=== PATIENT | female | born 1955 | race African-American/Black ===

== ENCOUNTER 2021-06-05 08:05 | Inpatient (IN) ==
[2021-06-05] MEDS ORDERED: PIPERACILLIN/TAZOBACTAM 3,375 MG in SODIUM CHLORIDE 0.9% 100 ML IV STA (09:36)
[2021-06-05 10:17] LABS: Basophils % 0.2 % (0.0-0.8); Eosinophils # 0.2 10*3/uL (0.0-0.87); Eosinophils % 1.8 % (0.00-10.9); Hematocrit 27.3 VOL% (35.7-47.0); Hemoglobin 8.8 GM/DL (12.0-16.0); Immature Granulocytes % 1.4 %; Immature Granulocytes Absolute 0.12 #; Lymphocytes # 0.4 10*3/uL (1.4-4.0); Lymphocytes % 4.3 % (21.3-54.2); Mean Corpuscular HGB Conc 32.2 GM/DL (32-36); Mean Corpuscular Volume 86.1 FL (87-102); Mean Platelet Volume 10.6 FL (9.6-12.0); Monocytes % 9.2 % (1.7-12.7); Neutrophils % 83.1 % (38.7-73.9); Platelet Count 264 T/CUMM (130-400); Red Blood Count 3.17 MC/CUMM (3.8-5.5); Red Cell Distribution Width 14.3 % (9.3-17.3); White Blood Count 8.7 T/CUMM (4-12)
[2021-06-05 10:22] LABS: Bilirubin,Urine Negative (Negative); Blood, Urine Large mg/dL (Negative); Glucose,Urine (UA) Negative (Negative); Hyaline Casts,Urine 43 /LPF (0-3); Ketones,Urine 5 mg/dL (Negative); Mucus,Urine Occasional /LPF (Occasional); Nitrite,Urine Negative (Negative); Protein,Urine 100 MG/DL; RBC,Urine 104 /HPF (0-4); Squamous Epithelial Cell,Urine Occasional /HPF (0-10); Urine Appearance CLOUDY (Clear); Urine Color Amber (Yellow); Urine Specific Gravity 1.015 (1.001-1.035)
[2021-06-05 10:36] LABS: Albumin 2.5 G/DL (3.4-5.0); Bilirubin,Total 0.8 MG/DL (0.20-1.00); Calcium 8.5 MG/DL (8.5-10.1); Osmolality,Calculated 282.5 MOS/KG (273-304); Potassium 3.7 MMOL/L (3.5-5.1); Total Protein 7.3 G/DL (6.4-8.2)
[2021-06-05 10:45] LABS: Band Neutrophils 4 % (0-10); Eosinophils 3 % (0-10); Lymphocytes 5 % (20-55); Segmented Neutrophils 73 % (50-85); Total Cells Counted 100
[2021-06-05 10:46] LABS: Hypochromia 2+; Microcytosis Slight; Ovalocytes Few
[2021-06-05 10:47] LABS: Platelet Estimate Normal
[2021-06-05] MEDS ORDERED: ACETAMINOPHEN 325 MG TABLET PO PRN (11:44)
[2021-06-05] MEDS ORDERED: ONDANSETRON 4 MG/2 ML VIAL IV PRN ×2 (11:44→13:46)
[2021-06-05] MEDS ORDERED: BISACODYL 5 MG TABLET PO PRN (11:44)
[2021-06-05] MEDS ORDERED: HYDROmorphone 2 MG/1 ML VIAL IV PRN (11:44)
[2021-06-05] MEDS ORDERED: GLUCAGON 1 MG VIAL IM PRN (12:02)
[2021-06-05] MEDS ORDERED: DEXTROSE 50% 25 GM/50 ML SYRINGE IV PRN (12:02)
[2021-06-05] MEDS ORDERED: propofoL 200 MG/20 ML VIAL IV ONE (12:08)
[2021-06-05] MEDS ORDERED: LIDOCAINE 2% 5 ML VIAL ONE (12:08)
[2021-06-05] MEDS ORDERED: fentaNYL 100 MCG/2 ML VIAL ONE (12:10)
[2021-06-05] MEDS ORDERED: MIDAZOLAM 2 MG/2 ML VIAL ONE (12:11)
[2021-06-05] MEDS: LACTATED RINGERS 1,000 ML IV SCH ×2 (12:26→20:45)
[2021-06-05] MEDS ORDERED: ONDANSETRON 4 MG/2 ML VIAL ONE (13:36)
[2021-06-05] MEDS ORDERED: DEXAMETHASONE 4 MG/1 ML VIAL ONE (13:36)
[2021-06-05] MEDS ORDERED: ACETAMINOPHEN INJ 1,000 MG/100 ML VIAL IV ONE (13:36)
[2021-06-05] MEDS ORDERED: MEPERIDINE 25 MG/1 ML VIAL IV PRN (13:46)
[2021-06-05] MEDS: INSULIN LISPRO 100 UNIT/ML SUBCUT SCH (20:44)
[2021-06-05] MEDS ORDERED: PIPERACILLIN/TAZOBACTAM 3,375 MG in SODIUM CHLORIDE 0.9% 100 ML IV SCH (21:00)
[2021-06-06] MEDS: INSULIN LISPRO 100 UNIT/ML SUBCUT SCH ×4 (00:22→17:35)
[2021-06-06] MEDS: LACTATED RINGERS 1,000 ML IV SCH ×3 (04:07→12:48)
[2021-06-06 05:14] LABS: Basophils % 0.2 % (0.0-0.8); Hematocrit 25.2 VOL% (35.7-47.0); Hemoglobin 8.1 GM/DL (12.0-16.0); Immature Granulocytes % 2.2 %; Immature Granulocytes Absolute 0.23 #; Lymphocytes # 0.4 10*3/uL (1.4-4.0); Lymphocytes % 3.5 % (21.3-54.2); Mean Corpuscular HGB Conc 32.1 GM/DL (32-36); Mean Corpuscular Volume 85.1 FL (87-102); Mean Platelet Volume 10.1 FL (9.6-12.0); Monocytes % 6.8 % (1.7-12.7); Neutrophils % 87.3 % (38.7-73.9); Platelet Count 290 T/CUMM (130-400); Red Blood Count 2.96 MC/CUMM (3.8-5.5); Red Cell Distribution Width 14.2 % (9.3-17.3); White Blood Count 10.4 T/CUMM (4-12)
[2021-06-06 05:31] LABS: Calcium 8.2 MG/DL (8.5-10.1); Potassium 3.6 MMOL/L (3.5-5.1)
[2021-06-06 05:39] LABS: Band Neutrophils 5 % (0-10); Lymphocytes 4 % (20-55); Segmented Neutrophils 83 % (50-85); Total Cells Counted 100
[2021-06-06 05:40] LABS: Hypochromia 2+; Platelet Estimate Normal
[2021-06-06] MEDS: HYDROmorphone 2 MG/1 ML VIAL IV PRN (07:19)
[2021-06-06] MEDS: PIPERACILLIN/TAZOBACTAM 3,375 MG in SODIUM CHLORIDE 0.9% 100 ML IV SCH ×2 (09:40→16:22)
[2021-06-06] MEDS: PANTOPRAZOLE 40 MG TABLET PO SCH (09:40)
[2021-06-06] MEDS ORDERED: DEXTROSE 10% 250 ML BAG IV PRN (11:00)
[2021-06-06] MEDS: ATORVASTATIN 20 MG TABLET PO SCH (21:00)
[2021-06-07] MEDS: INSULIN LISPRO 100 UNIT/ML SUBCUT SCH ×4 (01:25→18:03)
[2021-06-07] MEDS: PIPERACILLIN/TAZOBACTAM 3,375 MG in SODIUM CHLORIDE 0.9% 100 ML IV SCH ×2 (01:58→09:01)
[2021-06-07] MEDS: LOSARTAN 50 MG TABLET PO SCH (09:02)
[2021-06-07] MEDS: PANTOPRAZOLE 40 MG TABLET PO SCH (09:02)
[2021-06-07] MEDS: HYDROmorphone 2 MG/1 ML VIAL IV PRN (09:16)
[2021-06-07] MEDS: LACTATED RINGERS 1,000 ML IV SCH ×3 (10:41→20:44)
[2021-06-07] MEDS: SODIUM HYPOCHLORITE 0.25% IRRIG 473 ML BOTTLE TOP SCH (10:42)
[2021-06-07] MEDS: CLINDAMYCIN INJ 900 MG/50 ML PREMIX IV SCH ×2 (12:02→13:42)
[2021-06-07] MEDS: cefTRIAXone 1,000 MG in SODIUM CHLORIDE 0.9% 100 ML IV SCH (16:13)
[2021-06-07] MEDS: ATORVASTATIN 20 MG TABLET PO SCH (20:43)
[2021-06-07] MEDS: CLINDAMYCIN INJ 600 MG/50 ML PREMIX IV SCH (21:32)
[2021-06-08] MEDS: INSULIN LISPRO 100 UNIT/ML SUBCUT SCH ×4 (01:29→18:46)
[2021-06-08] MEDS: CLINDAMYCIN INJ 600 MG/50 ML PREMIX IV SCH ×4 (05:25→21:08)
[2021-06-08] MEDS: LACTATED RINGERS 1,000 ML IV SCH ×3 (05:25→21:54)
[2021-06-08] MEDS: LOSARTAN 50 MG TABLET PO SCH (09:12)
[2021-06-08] MEDS: PANTOPRAZOLE 40 MG TABLET PO SCH (09:12)
[2021-06-08] MEDS: SODIUM HYPOCHLORITE 0.25% IRRIG 473 ML BOTTLE TOP SCH (10:48)
[2021-06-08] MEDS: cefTRIAXone 1,000 MG in SODIUM CHLORIDE 0.9% 100 ML IV SCH (15:58)
[2021-06-08] MEDS: ATORVASTATIN 20 MG TABLET PO SCH (21:08)
[2021-06-09] MEDS: INSULIN LISPRO 100 UNIT/ML SUBCUT SCH ×4 (00:06→19:01)
[2021-06-09] MEDS: LACTATED RINGERS 1,000 ML IV SCH ×3 (05:08→22:15)
[2021-06-09] MEDS: CLINDAMYCIN INJ 600 MG/50 ML PREMIX IV SCH ×2 (05:09→16:05)
[2021-06-09 05:40] LABS: Basophils % 0.5 % (0.0-0.8); Eosinophils # 0.2 10*3/uL (0.0-0.87); Hematocrit 22.4 VOL% (35.7-47.0); Immature Granulocytes % 11.1 %; Immature Granulocytes Absolute 0.47 #; Lymphocytes # 0.4 10*3/uL (1.4-4.0); Lymphocytes % 9.2 % (21.3-54.2); Mean Corpuscular HGB Conc 31.3 GM/DL (32-36); Mean Corpuscular Volume 87.8 FL (87-102); Mean Platelet Volume 9.1 FL (9.6-12.0); NRBC # 0.04 10*3/uL; Neutrophils % 67.2 % (38.7-73.9); Platelet Count 403 T/CUMM (130-400); Red Blood Count 2.55 MC/CUMM (3.8-5.5); Red Cell Distribution Width 14.8 % (9.3-17.3); White Blood Count 4.2 T/CUMM (4-12)
[2021-06-09 05:51] LABS: Calcium 7.9 MG/DL (8.5-10.1); Potassium 3.4 MMOL/L (3.5-5.1)
[2021-06-09 06:20] LABS: Band Neutrophils 2 % (0-10); Eosinophils 3 % (0-10); Hypochromia 1+; Lymphocytes 7 % (20-55); Metamyelocytes 3 %; Myelocytes 1 %; Segmented Neutrophils 79 % (50-85); Total Cells Counted 100
[2021-06-09 06:21] LABS: Microcytosis 1+; Ovalocytes Few
[2021-06-09] MEDS: PANTOPRAZOLE 40 MG TABLET PO SCH (10:10)
[2021-06-09] MEDS: LOSARTAN 50 MG TABLET PO SCH (10:10)
[2021-06-09] MEDS ORDERED: MAGNESIUM SULF RIDER 4 GM/100 ML PREMIX IV ONE (11:27)
[2021-06-09] MEDS ORDERED: POTASSIUM CHLORIDE 20 MEQ TABLET PO ONE (11:28)
[2021-06-09] MEDS ORDERED: SODIUM CHLORIDE 0.9% 1,000 ML IV PRN (11:31)
[2021-06-09 11:49] LABS: % Iron Saturation 7.1 % (18-50)
[2021-06-09] MEDS: cefTRIAXone 1,000 MG in SODIUM CHLORIDE 0.9% 100 ML IV SCH (17:15)
[2021-06-09] MEDS: SODIUM HYPOCHLORITE 0.25% IRRIG 473 ML BOTTLE TOP SCH (17:30)
[2021-06-09] MEDS: ATORVASTATIN 20 MG TABLET PO SCH (20:29)
[2021-06-09] MEDS: FERRIC GLUCONATE COMPLEX 125 MG in SODIUM CHLORIDE 0.9% 100 ML IV SCH (22:23)
[2021-06-10] MEDS: INSULIN LISPRO 100 UNIT/ML SUBCUT SCH ×3 (00:07→16:07)
[2021-06-10] MEDS: CLINDAMYCIN INJ 600 MG/50 ML PREMIX IV SCH ×2 (00:46→11:21)
[2021-06-10] MEDS: LACTATED RINGERS 1,000 ML IV SCH ×2 (03:19→16:07)
[2021-06-10 05:46] LABS: Basophils % 0.6 % (0.0-0.8); Eosinophils # 0.2 10*3/uL (0.0-0.87); Eosinophils % 3.2 % (0.00-10.9); Hematocrit 30.5 VOL% (35.7-47.0); Immature Granulocytes % 9.7 %; Immature Granulocytes Absolute 0.52 #; Lymphocytes # 0.3 10*3/uL (1.4-4.0); Lymphocytes % 5.6 % (21.3-54.2); Mean Corpuscular HGB Conc 32.8 GM/DL (32-36); Mean Corpuscular Volume 86.4 FL (87-102); Mean Platelet Volume 9.1 FL (9.6-12.0); Monocytes % 5.6 % (1.7-12.7); NRBC # 0.03 10*3/uL; Neutrophils % 75.3 % (38.7-73.9); Platelet Count 367 T/CUMM (130-400); Red Cell Distribution Width 14.8 % (9.3-17.3); White Blood Count 5.4 T/CUMM (4-12)
[2021-06-10 06:15] LABS: Red Blood Count 3.53 MC/CUMM (3.8-5.5)
[2021-06-10 06:22] LABS: Band Neutrophils 1 % (0-10); Eosinophils 1 % (0-10); Hypochromia 1+; Lymphocytes 5 % (20-55); Microcytosis 1+; Nucleated Red Blood Cells 1 (0-5); Platelet Estimate Adequate; Segmented Neutrophils 84 % (50-85); Total Cells Counted 100
[2021-06-10 06:32] LABS: Bilirubin,Total 1.3 MG/DL (0.20-1.00); Calcium 8.1 MG/DL (8.5-10.1); Potassium 3.5 MMOL/L (3.5-5.1); Total Protein 5.9 G/DL (6.4-8.2)
[2021-06-10] MEDS: FERRIC GLUCONATE COMPLEX 125 MG in SODIUM CHLORIDE 0.9% 100 ML IV SCH (09:38)
[2021-06-10] MEDS: SODIUM HYPOCHLORITE 0.25% IRRIG 473 ML BOTTLE TOP SCH (09:40)
[2021-06-10] MEDS: LOSARTAN 50 MG TABLET PO SCH (09:40)
[2021-06-10] MEDS: CLINDAMYCIN 300 MG CAPSULE PO SCH ×2 (09:40→15:22)
[2021-06-10] MEDS: PANTOPRAZOLE 40 MG TABLET PO SCH (09:40)
[2021-06-10] MEDS: cefTRIAXone 1,000 MG in SODIUM CHLORIDE 0.9% 100 ML IV SCH (16:08)
[2021-06-10 16:46] VITALS: BP 145/78
== END 2021-06-10 17:23 | disposition home health service (06) | DRG 638 ==
LOC: N.ED 08:05 → N.EDINP 12:18 → N.5E 14:35
PROVIDERS: ADMIT Surgery; ATTEND Surgery

== ENCOUNTER 2022-02-12 15:17 | Inpatient (IN) ==
[2022-02-12 16:06] LABS: Basophils % 0.1 % (0.0-0.8); Eosinophils # 0.1 10*3/uL (0.0-0.87); Eosinophils % 0.7 % (0.00-10.9); Hematocrit 29.9 VOL% (35.7-47.0); Hemoglobin 9.2 GM/DL (12.0-16.0); Immature Granulocytes % 1.1 %; Immature Granulocytes Absolute 0.17 #; Lymphocytes # 0.3 10*3/uL (1.4-4.0); Lymphocytes % 2.2 % (21.3-54.2); Mean Corpuscular HGB Conc 30.8 GM/DL (32-36); Mean Corpuscular Volume 88.5 FL (87-102); Mean Platelet Volume 10.5 FL (9.6-12.0); Monocytes # 0.9 10*3/uL (0.11-0.8); Monocytes % 6.4 % (1.7-12.7); Neutrophils % 89.5 % (38.7-73.9); Platelet Count 182 T/CUMM (130-400); Red Blood Count 3.38 MC/CUMM (3.8-5.5); Red Cell Distribution Width 16.5 % (9.3-17.3); White Blood Count 14.8 T/CUMM (4-12)
[2022-02-12 16:18] LABS: Arterial Base Excess iSTAT -1 MMOL/L (-2.5-2.5); Arterial Bicarbonate iSTAT 22.6 MMOL/L (20-26); Arterial O2 Saturation iSTAT 95 % (95-100); Arterial PCO2 iSTAT 31 MM HG (35-48); Arterial PO2 iSTAT 68 MM HG (80-95); Arterial Total CO2 iSTAT 24 MMO/L (23-27); Arterial pH iSTAT 7.471 (7.35-7.45)
[2022-02-12 16:28] LABS: Lymphocytes 3 % (20-55); Platelet Estimate Adequate; Total Cells Counted 100
[2022-02-12] MEDS ORDERED: cefTRIAXone 1,000 MG in SODIUM CHLORIDE 0.9% 100 ML IV STA (17:07)
[2022-02-12 17:46] LABS: Albumin 2.2 G/DL (3.4-5.0); Bilirubin,Total 0.5 MG/DL (0.20-1.00); Calcium 9.1 MG/DL (8.5-10.1); Osmolality,Calculated 286.7 MOS/KG (273-304); Total Protein 5.8 G/DL (6.4-8.2)
[2022-02-12] MEDS ORDERED: SODIUM CHLORIDE 0.9% 1,000 ML IV STA (18:09)
[2022-02-12] MEDS ORDERED: SODIUM BICARBONATE 50 MEQ/50 ML VIAL IV STA (18:09)
[2022-02-12] MEDS ORDERED: SODIUM CHLORIDE 0.9% 1,750 ML IV ONE (18:20)
[2022-02-12] MEDS ORDERED: ENOXAPARIN 100 MG/ML SYRINGE SUBCUT STA (18:28)
[2022-02-12] MEDS ORDERED: ENOXAPARIN 60 MG/0.6 ML SYRINGE SUBCUT STA (18:29)
[2022-02-12] MEDS ORDERED: POTASSIUM CHLORIDE 20 MEQ TABLET PO STA (18:29)
[2022-02-12] MEDS ORDERED: GLUCAGON 1 MG VIAL IM PRN (18:42)
[2022-02-12] MEDS ORDERED: DOCUSATE SODIUM 100 MG CAPSULE PO PRN (18:42)
[2022-02-12] MEDS ORDERED: DEXTROSE 10% 250 ML BAG IV PRN (18:42)
[2022-02-12] MEDS ORDERED: DEXTROSE 50% 25 GM/50 ML VIAL IV PRN (18:42)
[2022-02-12] MEDS ORDERED: ONDANSETRON 4 MG/2 ML VIAL IV PRN (18:42)
[2022-02-12] MEDS ORDERED: guaiFENesin/DM ER 600-30 MG TABLET PO PRN (18:42)
[2022-02-12 19:14] LABS: Bilirubin,Urine Negative (Negative); Blood, Urine Negative (Negative); Glucose,Urine (UA) Negative (Negative); Ketones,Urine Negative (Negative); Nitrite,Urine Negative (Negative); Protein,Urine Trace mg/dL (Negative); Urine Appearance Clear (Clear); Urine Color Yellow (Yellow); Urine Specific Gravity 1.015 (1.001-1.035); Urine Urobilinogen 0.2 eU/dL (<2.0)
[2022-02-12 19:16] LABS: Hyaline Casts,Urine 1 /LPF (0-3); RBC,Urine <1 /HPF (0-4); Squamous Epithelial Cell,Urine Occasional /HPF (0-10)
[2022-02-12] MEDS: ALBUTEROL 2.5 MG/3 ML NEB RESP TX SCH (20:09)
[2022-02-12] MEDS ORDERED: AZITHROMYCIN INJ 500 MG in SODIUM CHLORIDE 0.9% 250 ML IV SCH (21:00)
[2022-02-12 22:02] LABS: Albumin 2.1 G/DL (3.4-5.0); Bilirubin,Total 0.4 MG/DL (0.20-1.00); Calcium 8.7 MG/DL (8.5-10.1); Osmolality,Calculated 287.5 MOS/KG (273-304); Total Protein 5.5 G/DL (6.4-8.2)
[2022-02-12] MEDS: INSULIN REGULAR 100 UNIT/ML SUBCUT SCH (22:25)
[2022-02-13] MEDS: ALBUTEROL 2.5 MG/3 ML NEB RESP TX SCH ×4 (01:07→19:37)
[2022-02-13 05:41] LABS: Basophils % 0.2 % (0.0-0.8); Eosinophils % 0.3 % (0.00-10.9); Hematocrit 26.3 VOL% (35.7-47.0); Hemoglobin 8.2 GM/DL (12.0-16.0); Immature Granulocytes % 1.3 %; Immature Granulocytes Absolute 0.08 #; Lymphocytes # 0.3 10*3/uL (1.4-4.0); Lymphocytes % 5.1 % (21.3-54.2); Mean Corpuscular HGB Conc 31.2 GM/DL (32-36); Mean Corpuscular Volume 89.2 FL (87-102); Mean Platelet Volume 9.4 FL (9.6-12.0); Monocytes # 0.4 10*3/uL (0.11-0.8); Monocytes % 6.5 % (1.7-12.7); Neutrophils % 86.6 % (38.7-73.9); Platelet Count 166 T/CUMM (130-400); Red Blood Count 2.95 MC/CUMM (3.8-5.5); Red Cell Distribution Width 16.5 % (9.3-17.3); White Blood Count 6.1 T/CUMM (4-12)
[2022-02-13 06:14] LABS: Albumin 2.1 G/DL (3.4-5.0); Bilirubin,Total 0.4 MG/DL (0.20-1.00); Osmolality,Calculated 287.1 MOS/KG (273-304); Potassium 3.7 MMOL/L (3.5-5.1); Total Protein 5.8 G/DL (6.4-8.2)
[2022-02-13 06:22] LABS: Thyroid Stimulating Hormone 13.6 uIU/ml (0.358-3.74)
[2022-02-13] MEDS: INSULIN REGULAR 100 UNIT/ML SUBCUT SCH ×4 (08:25→22:58)
[2022-02-13] MEDS ORDERED: cefTRIAXone 2,000 MG in SODIUM CHLORIDE 0.9% 100 ML IV SCH (09:00)
[2022-02-13] MEDS: APIXABAN 5 MG TABLET PO SCH ×2 (10:08→22:49)
[2022-02-13] MEDS ORDERED: diphenhydrAMINE CAP 50 MG CAPSULE PO ONE (11:00)
[2022-02-13] MEDS ORDERED: DIAZEPAM 5 MG TABLET PO ONE (11:00)
[2022-02-13] MEDS ORDERED: HYDROmorphone 1 MG/1 ML SYRINGE ONE ×2 (17:29→18:38)
[2022-02-13] MEDS ORDERED: MIDAZOLAM 2 MG/2 ML VIAL ONE (17:29)
[2022-02-13] MEDS ORDERED: METOPROLOL TARTRATE 5 MG/5 ML VIAL IV ONE ×2 (17:58→18:44)
[2022-02-13] MEDS ORDERED: ZALEPLON 5 MG CAPSULE PO PRN (18:41)
[2022-02-13] MEDS ORDERED: HYDROmorphone 1 MG/1 ML SYRINGE IV PRN (18:41)
[2022-02-14] MEDS: ALBUTEROL 2.5 MG/3 ML NEB RESP TX SCH ×4 (00:02→19:40)
[2022-02-14] MEDS: ACETAMINOPHEN 325 MG TABLET PO PRN ×2 (00:37→20:03)
[2022-02-14] MEDS: SODIUM CHLORIDE 0.45% 500 ML IV SCH ×2 (01:29→06:23)
[2022-02-14] MEDS: IBUPROFEN 400 MG TABLET PO PRN ×2 (03:14→17:52)
[2022-02-14 05:45] LABS: Basophils % 0.2 % (0.0-0.8); Eosinophils # 0.2 10*3/uL (0.0-0.87); Eosinophils % 1.7 % (0.00-10.9); Hematocrit 26.7 VOL% (35.7-47.0); Hemoglobin 8.1 GM/DL (12.0-16.0); Immature Granulocytes % 1.1 %; Immature Granulocytes Absolute 0.12 #; Lymphocytes # 0.4 10*3/uL (1.4-4.0); Lymphocytes % 3.4 % (21.3-54.2); Mean Corpuscular HGB Conc 30.3 GM/DL (32-36); Mean Corpuscular Volume 89.9 FL (87-102); Mean Platelet Volume 9.7 FL (9.6-12.0); Monocytes # 0.8 10*3/uL (0.11-0.8); Monocytes % 7.1 % (1.7-12.7); Neutrophils % 86.5 % (38.7-73.9); Platelet Count 124 T/CUMM (130-400); Red Blood Count 2.97 MC/CUMM (3.8-5.5); White Blood Count 10.5 T/CUMM (4-12)
[2022-02-14 06:06] LABS: Calcium 8.7 MG/DL (8.5-10.1); Osmolality,Calculated 284.4 MOS/KG (273-304); Potassium 4.1 MMOL/L (3.5-5.1)
[2022-02-14] MEDS: LEVOTHYROXINE 25 MCG TABLET PO SCH (06:15)
[2022-02-14 06:42] LABS: Anisocytosis 1+; Band Neutrophils 8 % (0-10); Burr Cells Few; Lymphocytes 3 % (20-55); Macrocytosis 1+; Platelet Estimate Adequate; Total Cells Counted 100
[2022-02-14 06:43] LABS: Hypochromia Slight; Ovalocytes 1+
[2022-02-14] MEDS ORDERED: DEXTROSE 50% 25 GM/50 ML VIAL IV PRN (08:47)
[2022-02-14] MEDS ORDERED: GLUCAGON 1 MG VIAL IM PRN (08:47)
[2022-02-14] MEDS: INSULIN REGULAR 100 UNIT/ML SUBCUT SCH ×4 (08:51→20:38)
[2022-02-14] MEDS: APIXABAN 5 MG TABLET PO SCH ×2 (09:58→21:16)
[2022-02-14] MEDS: LIOTHYRONINE 25 MCG TABLET PO SCH (09:59)
[2022-02-14] MEDS ORDERED: SODIUM CHLORIDE 0.9% 500 ML IV ONE (17:36)
[2022-02-14] MEDS: traZODone 50 MG TABLET PO PRN (20:03)
[2022-02-15] MEDS: ALBUTEROL 2.5 MG/3 ML NEB RESP TX SCH ×3 (00:35→13:05)
[2022-02-15] MEDS: LEVOTHYROXINE 25 MCG TABLET PO SCH (06:20)
[2022-02-15 08:03] LABS: Basophils % 0.4 % (0.0-0.8); Eosinophils # 0.3 10*3/uL (0.0-0.87); Eosinophils % 3.3 % (0.00-10.9); Hematocrit 27.1 VOL% (35.7-47.0); Hemoglobin 8.3 GM/DL (12.0-16.0); Immature Granulocytes % 0.8 %; Immature Granulocytes Absolute 0.07 #; Lymphocytes # 0.3 10*3/uL (1.4-4.0); Lymphocytes % 3.4 % (21.3-54.2); Mean Corpuscular HGB Conc 30.6 GM/DL (32-36); Mean Corpuscular Volume 89.4 FL (87-102); Mean Platelet Volume 8.6 FL (9.6-12.0); Monocytes # 0.3 10*3/uL (0.11-0.8); Monocytes % 3.7 % (1.7-12.7); Neutrophils % 88.4 % (38.7-73.9); Platelet Count 114 T/CUMM (130-400); Red Blood Count 3.03 MC/CUMM (3.8-5.5); Red Cell Distribution Width 16.7 % (9.3-17.3); White Blood Count 8.5 T/CUMM (4-12)
[2022-02-15] MEDS: INSULIN REGULAR 100 UNIT/ML SUBCUT SCH ×3 (08:07→15:31)
[2022-02-15] MEDS: APIXABAN 5 MG TABLET PO SCH ×2 (08:11→22:14)
[2022-02-15] MEDS: LIOTHYRONINE 25 MCG TABLET PO SCH (08:11)
[2022-02-15 08:15] LABS: Calcium 8.5 MG/DL (8.5-10.1); Osmolality,Calculated 282.5 MOS/KG (273-304); Potassium 3.5 MMOL/L (3.5-5.1)
[2022-02-15 08:24] LABS: Anisocytosis 1+; Band Neutrophils 11 % (0-10); Eosinophils 2 % (0-10); Lymphocytes 4 % (20-55); Ovalocytes Few; Platelet Estimate Adequate; Total Cells Counted 100
[2022-02-15] MEDS ORDERED: LACTATED RINGERS 1,000 ML IV SCH (09:00)
[2022-02-15] MEDS ORDERED: FUROSEMIDE 40 MG/4 ML VIAL IV ONE ×2 (10:45→18:00)
[2022-02-15] MEDS ORDERED: METOPROLOL TARTRATE 5 MG/5 ML VIAL IV ONE ×2 (14:21→15:22)
[2022-02-15] MEDS ORDERED: METOPROLOL TARTRATE 50 MG TABLET PO ONE (14:23)
[2022-02-15] MEDS ORDERED: METOCLOPRAMIDE 10 MG/2 ML VIAL IV ONE (15:18)
[2022-02-15] MEDS: ACETAMINOPHEN 325 MG TABLET PO PRN (15:45)
[2022-02-15] MEDS ORDERED: SODIUM CHLORIDE 0.9% 500 ML IV ONE (17:27)
[2022-02-16] MEDS: INSULIN REGULAR 100 UNIT/ML SUBCUT SCH ×5 (00:24→22:00)
[2022-02-16] MEDS: METOPROLOL TARTRATE 25 MG TABLET PO SCH ×3 (00:24→21:59)
[2022-02-16] MEDS: ALBUTEROL 2.5 MG/3 ML NEB RESP TX SCH ×4 (00:30→19:21)
[2022-02-16] MEDS ORDERED: FUROSEMIDE 40 MG/4 ML VIAL IV SCH (09:00)
[2022-02-16] MEDS: LIOTHYRONINE 25 MCG TABLET PO SCH (09:56)
[2022-02-16] MEDS: APIXABAN 5 MG TABLET PO SCH ×2 (09:56→21:59)
[2022-02-16] MEDS ORDERED: FUROSEMIDE 40 MG/4 ML VIAL IV ONE (11:29)
[2022-02-16 15:41] LABS: Aldosterone, Plasma < 4.0 ng/dL (<=21)
[2022-02-16 15:44] LABS: Metanephrine, Free < 0.20 nmol/L (<0.50); Normetanephrine, Free 0.58 nmol/L (<0.90)
[2022-02-16] MEDS ORDERED: LEVOFLOXACIN INJ 500 MG/100 ML PREMIX IV ONE (16:00)
[2022-02-16 16:46] LABS: Renin Activity 4.6 ng/mL/h
[2022-02-16] MEDS: FUROSEMIDE 40 MG/4 ML VIAL IV SCH (17:44)
[2022-02-17] MEDS ORDERED: COSYNTROPIN 0.25 MG VIAL IV ONE (04:00)
[2022-02-17 05:49] LABS: Basophils % 0.2 % (0.0-0.8); Eosinophils % 0.6 % (0.00-10.9); Hematocrit 23.3 VOL% (35.7-47.0); Hemoglobin 7.4 GM/DL (12.0-16.0); Immature Granulocytes % 0.9 %; Immature Granulocytes Absolute 0.06 #; Lymphocytes # 0.2 10*3/uL (1.4-4.0); Lymphocytes % 3.4 % (21.3-54.2); Mean Corpuscular HGB Conc 31.8 GM/DL (32-36); Mean Corpuscular Volume 86.9 FL (87-102); Mean Platelet Volume 10.3 FL (9.6-12.0); Monocytes # 0.3 10*3/uL (0.11-0.8); Monocytes % 4.9 % (1.7-12.7); Platelet Count 151 T/CUMM (130-400); Red Blood Count 2.68 MC/CUMM (3.8-5.5); Red Cell Distribution Width 16.4 % (9.3-17.3); White Blood Count 6.6 T/CUMM (4-12)
[2022-02-17 06:05] LABS: Calcium 8.4 MG/DL (8.5-10.1); Osmolality,Calculated 281.8 MOS/KG (273-304); Potassium 3.3 MMOL/L (3.5-5.1)
[2022-02-17 06:10] LABS: % Iron Saturation 11.1 % (18-50); Ferritin 1857.2 ng/mL (8-252)
[2022-02-17 06:16] LABS: Eosinophils 1 % (0-10); Hypochromia 1+; Lymphocytes 1 % (20-55); Microcytosis 1+; Ovalocytes Slight; Platelet Estimate Adequate; Total Cells Counted 100
[2022-02-17] MEDS: ALBUTEROL 2.5 MG/3 ML NEB RESP TX SCH ×2 (06:56)
[2022-02-17] MEDS ORDERED: POTASSIUM CHLORIDE 20 MEQ TABLET PO ONE (07:25)
[2022-02-17] MEDS ORDERED: MAGNESIUM SULF RIDER 2 GM/50 ML PREMIX IV ONE (07:25)
[2022-02-17] MEDS ORDERED: SODIUM CHLORIDE 0.9% 1,000 ML IV PRN (08:51)
[2022-02-17] MEDS: APIXABAN 5 MG TABLET PO SCH ×2 (09:21→20:29)
[2022-02-17] MEDS: METOPROLOL TARTRATE 25 MG TABLET PO SCH ×2 (09:21→20:29)
[2022-02-17] MEDS: LIOTHYRONINE 25 MCG TABLET PO SCH (09:21)
[2022-02-17] MEDS: INSULIN REGULAR 100 UNIT/ML SUBCUT SCH ×4 (09:29→20:32)
[2022-02-17] MEDS: FUROSEMIDE 40 MG/4 ML VIAL IV SCH (10:16)
[2022-02-17] MEDS: FERRIC GLUCONATE COMPLEX 125 MG in SODIUM CHLORIDE 0.9% 100 ML IV SCH (11:43)
[2022-02-17] MEDS: LEVALBUTEROL 1.25 MG/3 ML NEB RESP TX SCH ×2 (13:28→19:02)
[2022-02-17] MEDS: LEVOFLOXACIN INJ 250 MG/50 ML PREMIX IV SCH (18:53)
[2022-02-17 19:57] LABS: Hematocrit 30.4 VOL% (35.7-47.0); Hemoglobin 9.8 GM/DL (12.0-16.0)
[2022-02-18] MEDS: LEVALBUTEROL 1.25 MG/3 ML NEB RESP TX SCH ×4 (00:20→20:00)
[2022-02-18 05:35] LABS: Basophils % 0.3 % (0.0-0.8); Eosinophils % 0.6 % (0.00-10.9); Hematocrit 27.1 VOL% (35.7-47.0); Hemoglobin 8.4 GM/DL (12.0-16.0); Immature Granulocytes % 0.7 %; Immature Granulocytes Absolute 0.05 #; Lymphocytes # 0.3 10*3/uL (1.4-4.0); Lymphocytes % 3.4 % (21.3-54.2); Mean Corpuscular Volume 86.6 FL (87-102); Mean Platelet Volume 9.6 FL (9.6-12.0); Monocytes # 0.4 10*3/uL (0.11-0.8); Monocytes % 5.6 % (1.7-12.7); Neutrophils % 89.4 % (38.7-73.9); Platelet Count 141 T/CUMM (130-400); Red Blood Count 3.13 MC/CUMM (3.8-5.5); Red Cell Distribution Width 15.9 % (9.3-17.3); White Blood Count 7.3 T/CUMM (4-12)
[2022-02-18 06:05] LABS: Eosinophils 1 % (0-10); Hypochromia Slight; Lymphocytes 3 % (20-55); Microcytosis Slight; Platelet Estimate Adequate; Total Cells Counted 100
[2022-02-18 06:06] LABS: Calcium 8.4 MG/DL (8.5-10.1); Osmolality,Calculated 280.7 MOS/KG (273-304); Potassium 3.6 MMOL/L (3.5-5.1)
[2022-02-18] MEDS: INSULIN REGULAR 100 UNIT/ML SUBCUT SCH ×4 (07:20→20:42)
[2022-02-18] MEDS: predniSONE 20 MG TABLET PO SCH (09:58)
[2022-02-18] MEDS: FUROSEMIDE 40 MG TABLET PO SCH (09:58)
[2022-02-18] MEDS: LIOTHYRONINE 25 MCG TABLET PO SCH (09:58)
[2022-02-18] MEDS: METOPROLOL TARTRATE 50 MG TABLET PO SCH ×2 (09:58→20:40)
[2022-02-18] MEDS: APIXABAN 5 MG TABLET PO SCH ×2 (09:59→20:40)
[2022-02-18] MEDS: FERRIC GLUCONATE COMPLEX 125 MG in SODIUM CHLORIDE 0.9% 100 ML IV SCH (10:02)
[2022-02-18] MEDS: LEVOFLOXACIN INJ 250 MG/50 ML PREMIX IV SCH (15:21)
[2022-02-18] MEDS: ALPRAZolam 0.25 MG TABLET PO SCH (20:40)
[2022-02-18] MEDS: PANTOPRAZOLE 40 MG VIAL IV SCH (20:42)
[2022-02-19] MEDS: LEVALBUTEROL 1.25 MG/3 ML NEB RESP TX SCH ×4 (00:40→20:05)
[2022-02-19 04:48] LABS: Basophils % 0.2 % (0.0-0.8); Eosinophils % 0.2 % (0.00-10.9); Hematocrit 28.1 VOL% (35.7-47.0); Hemoglobin 8.9 GM/DL (12.0-16.0); Immature Granulocytes % 0.6 %; Immature Granulocytes Absolute 0.03 #; Lymphocytes # 0.2 10*3/uL (1.4-4.0); Lymphocytes % 4.3 % (21.3-54.2); Mean Corpuscular HGB Conc 31.7 GM/DL (32-36); Mean Platelet Volume 10.4 FL (9.6-12.0); Monocytes # 0.3 10*3/uL (0.11-0.8); Monocytes % 5.5 % (1.7-12.7); Neutrophils % 89.2 % (38.7-73.9); Platelet Count 151 T/CUMM (130-400); Red Blood Count 3.23 MC/CUMM (3.8-5.5); Red Cell Distribution Width 15.9 % (9.3-17.3); White Blood Count 4.9 T/CUMM (4-12)
[2022-02-19 05:11] LABS: Calcium 8.8 MG/DL (8.5-10.1); Osmolality,Calculated 281.8 MOS/KG (273-304); Potassium 3.5 MMOL/L (3.5-5.1)
[2022-02-19 05:27] LABS: Band Neutrophils 1 % (0-10); Lymphocytes 2 % (20-55); Platelet Estimate Adequate; Total Cells Counted 100
[2022-02-19 05:28] LABS: Hypochromia Slight; Microcytosis Slight; Ovalocytes Slight
[2022-02-19] MEDS: INSULIN REGULAR 100 UNIT/ML SUBCUT SCH ×5 (07:57→20:55)
[2022-02-19] MEDS: LACTATED RINGERS 1,000 ML IV SCH (09:00)
[2022-02-19] MEDS ORDERED: ETOMIDATE 20 MG/10 ML VIAL IV ONE (10:02)
[2022-02-19] MEDS ORDERED: LIDOCAINE 2% 5 ML VIAL ONE (10:02)
[2022-02-19] MEDS: ALPRAZolam 0.25 MG TABLET PO SCH ×2 (10:41→20:45)
[2022-02-19] MEDS: predniSONE 20 MG TABLET PO SCH (10:41)
[2022-02-19] MEDS: LIOTHYRONINE 25 MCG TABLET PO SCH (10:41)
[2022-02-19] MEDS: APIXABAN 5 MG TABLET PO SCH ×2 (10:41→20:45)
[2022-02-19] MEDS: METOPROLOL TARTRATE 50 MG TABLET PO SCH ×2 (10:42→20:45)
[2022-02-19] MEDS: FERRIC GLUCONATE COMPLEX 125 MG in SODIUM CHLORIDE 0.9% 100 ML IV SCH (10:42)
[2022-02-19] MEDS: PANTOPRAZOLE 40 MG VIAL IV SCH ×2 (10:42→20:46)
[2022-02-19] MEDS: FUROSEMIDE 40 MG TABLET PO SCH (10:42)
[2022-02-19 16:00] LABS: Arterial Base Excess iSTAT 1 MMOL/L (-2.5-2.5); Arterial Bicarbonate iSTAT 25.2 MMOL/L (20-26); Arterial O2 Saturation iSTAT 100 % (95-100); Arterial PCO2 iSTAT 36 MM HG (35-48); Arterial PO2 iSTAT 291 MM HG (80-95); Arterial Total CO2 iSTAT 26 MMO/L (23-27); Arterial pH iSTAT 7.456 (7.35-7.45)
[2022-02-19] MEDS: LEVOFLOXACIN INJ 250 MG/50 ML PREMIX IV SCH (17:20)
[2022-02-20] MEDS: LEVALBUTEROL 1.25 MG/3 ML NEB RESP TX SCH ×5 (00:25→23:37)
[2022-02-20 05:07] LABS: Basophils % 0.2 % (0.0-0.8); Eosinophils % 0.3 % (0.00-10.9); Hematocrit 25.4 VOL% (35.7-47.0); Immature Granulocytes % 0.6 %; Immature Granulocytes Absolute 0.04 #; Lymphocytes # 0.2 10*3/uL (1.4-4.0); Lymphocytes % 3.3 % (21.3-54.2); Mean Corpuscular HGB Conc 31.5 GM/DL (32-36); Mean Corpuscular Volume 86.7 FL (87-102); Mean Platelet Volume 9.8 FL (9.6-12.0); Monocytes # 0.3 10*3/uL (0.11-0.8); Monocytes % 3.9 % (1.7-12.7); Neutrophils % 91.7 % (38.7-73.9); Platelet Count 166 T/CUMM (130-400); Red Blood Count 2.93 MC/CUMM (3.8-5.5); Red Cell Distribution Width 15.9 % (9.3-17.3); White Blood Count 6.4 T/CUMM (4-12)
[2022-02-20 05:24] LABS: Calcium 8.8 MG/DL (8.5-10.1); Osmolality,Calculated 282.5 MOS/KG (273-304); Potassium 3.4 MMOL/L (3.5-5.1)
[2022-02-20 06:52] LABS: Band Neutrophils 3 % (0-10); Hypochromia Slight; Lymphocytes 4 % (20-55); Microcytosis Slight; Ovalocytes Slight; Platelet Estimate Adequate; Total Cells Counted 100
[2022-02-20] MEDS ORDERED: POTASSIUM CHLORIDE 20 MEQ TABLET PO ONE (07:17)
[2022-02-20] MEDS: INSULIN REGULAR 100 UNIT/ML SUBCUT SCH ×4 (07:24→20:40)
[2022-02-20] MEDS ORDERED: FUROSEMIDE 40 MG/4 ML VIAL IV SCH (09:14)
[2022-02-20] MEDS: LACTATED RINGERS 1,000 ML IV SCH (09:21)
[2022-02-20] MEDS: predniSONE 20 MG TABLET PO SCH (09:22)
[2022-02-20] MEDS: LIOTHYRONINE 25 MCG TABLET PO SCH (09:22)
[2022-02-20] MEDS: FERRIC GLUCONATE COMPLEX 125 MG in SODIUM CHLORIDE 0.9% 100 ML IV SCH (09:22)
[2022-02-20] MEDS: METOPROLOL TARTRATE 50 MG TABLET PO SCH ×2 (09:22→20:41)
[2022-02-20] MEDS: APIXABAN 5 MG TABLET PO SCH ×2 (09:22→20:15)
[2022-02-20] MEDS: PANTOPRAZOLE 40 MG VIAL IV SCH ×2 (09:22→20:12)
[2022-02-20] MEDS: ALPRAZolam 0.25 MG TABLET PO SCH ×2 (09:22→20:13)
[2022-02-20] MEDS: FUROSEMIDE 40 MG TABLET PO SCH (09:23)
[2022-02-20] MEDS ORDERED: MORPHINE 2 MG/1 ML SYRINGE IV ONE (10:42)
[2022-02-20] MEDS ORDERED: LORazepam 2 MG/1 ML VIAL IV ONE (10:43)
[2022-02-20] MEDS ORDERED: LEVALBUTEROL 1.25 MG/3 ML NEB RESP TX STA (10:44)
[2022-02-20] MEDS: methylPREDNISolone SOD SUC 40 MG/1 ML VIAL IV SCH ×2 (11:25→20:11)
[2022-02-20] MEDS ORDERED: METOPROLOL TARTRATE 5 MG/5 ML VIAL IV ONE (11:27)
[2022-02-20 11:33] LABS: Arterial Base Excess iSTAT -1 MMOL/L (-2.5-2.5); Arterial Bicarbonate iSTAT 22.7 MMOL/L (20-26); Arterial O2 Saturation iSTAT 81 % (95-100); Arterial PCO2 iSTAT 33 MM HG (35-48); Arterial PO2 iSTAT 43 MM HG (80-95); Arterial Total CO2 iSTAT 24 MMO/L (23-27); Arterial pH iSTAT 7.445 (7.35-7.45)
[2022-02-20] MEDS ORDERED: FUROSEMIDE 40 MG/4 ML VIAL IV ONE (12:17)
[2022-02-20] MEDS ORDERED: DIGOXIN 0.5 MG/2 ML AMP IV ONE ×4 (12:23→13:23)
[2022-02-20] MEDS ORDERED: DIGOXIN 0.5 MG/2 ML AMP ONE (12:25)
[2022-02-20] MEDS: MEROPENEM 500 MG in SODIUM CHLORIDE 0.9% 100 ML IV SCH ×2 (12:32→18:32)
[2022-02-20] MEDS: POTASSIUM CHLORIDE 20 MEQ TABLET PO SCH ×2 (16:00→20:14)
[2022-02-20] MEDS: FUROSEMIDE 40 MG/4 ML VIAL IV SCH (20:17)
[2022-02-21] MEDS: MEROPENEM 500 MG in SODIUM CHLORIDE 0.9% 100 ML IV SCH ×3 (00:49→16:59)
[2022-02-21] MEDS: methylPREDNISolone SOD SUC 40 MG/1 ML VIAL IV SCH ×3 (03:30→20:11)
[2022-02-21 03:38] LABS: Hematocrit 27.6 VOL% (35.7-47.0); Hemoglobin 8.6 GM/DL (12.0-16.0); Immature Granulocytes % 0.5 %; Immature Granulocytes Absolute 0.03 #; Lymphocytes # 0.2 10*3/uL (1.4-4.0); Lymphocytes % 3.5 % (21.3-54.2); Mean Corpuscular HGB Conc 31.2 GM/DL (32-36); Mean Corpuscular Volume 86.5 FL (87-102); Mean Platelet Volume 9.5 FL (9.6-12.0); Monocytes # 0.2 10*3/uL (0.11-0.8); Monocytes % 2.5 % (1.7-12.7); Neutrophils % 93.5 % (38.7-73.9); Platelet Count 174 T/CUMM (130-400); Red Blood Count 3.19 MC/CUMM (3.8-5.5); Red Cell Distribution Width 15.9 % (9.3-17.3); White Blood Count 6.3 T/CUMM (4-12)
[2022-02-21] MEDS: POTASSIUM CHLORIDE 20 MEQ TABLET PO SCH (03:52)
[2022-02-21 03:55] LABS: Calcium 8.9 MG/DL (8.5-10.1); Osmolality,Calculated 291.7 MOS/KG (273-304); Potassium 3.7 MMOL/L (3.5-5.1)
[2022-02-21] MEDS ORDERED: POTASSIUM CHLORIDE 20 MEQ TABLET PO SCH (04:00)
[2022-02-21 04:20] LABS: Band Neutrophils 6 % (0-10); Hypochromia Slight; Lymphocytes 1 % (20-55); Ovalocytes Few; Total Cells Counted 100
[2022-02-21 04:21] LABS: Microcytosis Slight; Polychromasia Slight
[2022-02-21] MEDS: LEVALBUTEROL 1.25 MG/3 ML NEB RESP TX SCH ×4 (07:30→23:56)
[2022-02-21] MEDS: APIXABAN 5 MG TABLET PO SCH ×2 (08:28→20:12)
[2022-02-21] MEDS: INSULIN REGULAR 100 UNIT/ML SUBCUT SCH ×4 (08:28→20:12)
[2022-02-21] MEDS: METOPROLOL TARTRATE 50 MG TABLET PO SCH ×2 (08:28→20:12)
[2022-02-21] MEDS: ALPRAZolam 0.25 MG TABLET PO SCH ×2 (08:28→20:12)
[2022-02-21] MEDS: PANTOPRAZOLE 40 MG VIAL IV SCH ×2 (08:29→20:12)
[2022-02-21] MEDS: LIOTHYRONINE 25 MCG TABLET PO SCH (08:29)
[2022-02-21] MEDS: FUROSEMIDE 40 MG/4 ML VIAL IV SCH ×2 (08:32→16:58)
[2022-02-21] MEDS: FERRIC GLUCONATE COMPLEX 125 MG in SODIUM CHLORIDE 0.9% 100 ML IV SCH (09:23)
[2022-02-22] MEDS: MEROPENEM 500 MG in SODIUM CHLORIDE 0.9% 100 ML IV SCH ×2 (01:12→09:35)
[2022-02-22 04:11] LABS: Hematocrit 28.5 VOL% (35.7-47.0); Immature Granulocytes % 0.6 %; Immature Granulocytes Absolute 0.05 #; Lymphocytes # 0.2 10*3/uL (1.4-4.0); Lymphocytes % 2.1 % (21.3-54.2); Mean Corpuscular HGB Conc 31.6 GM/DL (32-36); Mean Corpuscular Volume 86.6 FL (87-102); Monocytes # 0.3 10*3/uL (0.11-0.8); Monocytes % 3.4 % (1.7-12.7); Neutrophils % 93.9 % (38.7-73.9); Platelet Count 197 T/CUMM (130-400); Red Blood Count 3.29 MC/CUMM (3.8-5.5); Red Cell Distribution Width 15.9 % (9.3-17.3); White Blood Count 8.2 T/CUMM (4-12)
[2022-02-22] MEDS: methylPREDNISolone SOD SUC 40 MG/1 ML VIAL IV SCH ×2 (04:18→20:33)
[2022-02-22 04:44] LABS: Osmolality,Calculated 292.5 MOS/KG (273-304); Potassium 3.6 MMOL/L (3.5-5.1)
[2022-02-22 05:14] LABS: Band Neutrophils 3 % (0-10); Hypochromia Slight; Lymphocytes 1 % (20-55); Microcytosis Slight; Ovalocytes Few; Total Cells Counted 100
[2022-02-22 05:15] LABS: Platelet Estimate Adequate
[2022-02-22] MEDS: LEVALBUTEROL 1.25 MG/3 ML NEB RESP TX SCH ×3 (07:34→19:35)
[2022-02-22] MEDS: INSULIN REGULAR 100 UNIT/ML SUBCUT SCH ×4 (09:34→20:33)
[2022-02-22] MEDS: FUROSEMIDE 40 MG/4 ML VIAL IV SCH ×2 (09:35→18:45)
[2022-02-22] MEDS: PANTOPRAZOLE 40 MG VIAL IV SCH ×2 (09:35→20:33)
[2022-02-22] MEDS: FERRIC GLUCONATE COMPLEX 125 MG in SODIUM CHLORIDE 0.9% 100 ML IV SCH (09:35)
[2022-02-22] MEDS: ALPRAZolam 0.25 MG TABLET PO SCH ×2 (09:36→20:33)
[2022-02-22] MEDS: METOPROLOL TARTRATE 50 MG TABLET PO SCH ×2 (09:36→20:33)
[2022-02-22] MEDS: APIXABAN 5 MG TABLET PO SCH ×2 (09:36→20:33)
[2022-02-22] MEDS: LIOTHYRONINE 25 MCG TABLET PO SCH (09:47)
[2022-02-22 11:21] LABS: Amorphous Crystals,Urine Occasional /HPF (Few); Bacteria,Urine Occasional /HPF (Few); Hyaline Casts,Urine 43 /LPF (0-3); Mucus,Urine Occasional /LPF (Occasional); RBC,Urine 2 /HPF (0-4); Squamous Epithelial Cell,Urine Occasional /HPF (0-10)
[2022-02-22 11:24] LABS: Glucose,Urine (UA) Negative (Negative); Ketones,Urine Negative (Negative); Nitrite,Urine Negative (Negative); Protein,Urine 100 mg/dL (Negative); Urine Appearance Slightly Hazy (Clear); Urine Color Yellow (Yellow)
[2022-02-22 11:25] LABS: Bilirubin,Urine Negative (Negative); Blood, Urine Negative (Negative); Urine Urobilinogen 0.2 eU/dL (<2.0)
[2022-02-22] MEDS: cefTRIAXone 1,000 MG in SODIUM CHLORIDE 0.9% 100 ML IV SCH (14:12)
[2022-02-23] MEDS: LEVALBUTEROL 1.25 MG/3 ML NEB RESP TX SCH ×4 (00:02→18:51)
[2022-02-23 04:00] LABS: Hematocrit 32.8 VOL% (35.7-47.0); Hemoglobin 10.2 GM/DL (12.0-16.0); Immature Granulocytes % 0.5 %; Immature Granulocytes Absolute 0.03 #; Lymphocytes # 0.1 10*3/uL (1.4-4.0); Lymphocytes % 2.2 % (21.3-54.2); Mean Corpuscular HGB Conc 31.1 GM/DL (32-36); Mean Corpuscular Volume 87.5 FL (87-102); Mean Platelet Volume 11.9 FL (9.6-12.0); Monocytes # 0.3 10*3/uL (0.11-0.8); Monocytes % 4.6 % (1.7-12.7); Neutrophils % 92.7 % (38.7-73.9); Platelet Count 165 T/CUMM (130-400); Red Blood Count 3.75 MC/CUMM (3.8-5.5); Red Cell Distribution Width 15.9 % (9.3-17.3); White Blood Count 5.9 T/CUMM (4-12)
[2022-02-23 04:21] LABS: Calcium 9.6 MG/DL (8.5-10.1); Osmolality,Calculated 299.4 MOS/KG (273-304); Potassium 3.3 MMOL/L (3.5-5.1)
[2022-02-23 04:29] LABS: Hypochromia Slight; Microcytosis Slight; Platelet Estimate Adequate; Total Cells Counted 100
[2022-02-23] MEDS: POTASSIUM CHLORIDE 20 MEQ TABLET PO PRN ×3 (06:05→12:07)
[2022-02-23] MEDS: FERRIC GLUCONATE COMPLEX 125 MG in SODIUM CHLORIDE 0.9% 100 ML IV SCH (08:57)
[2022-02-23] MEDS: INSULIN REGULAR 100 UNIT/ML SUBCUT SCH ×4 (08:59→20:32)
[2022-02-23] MEDS: LIOTHYRONINE 25 MCG TABLET PO SCH (09:00)
[2022-02-23] MEDS: APIXABAN 5 MG TABLET PO SCH ×2 (09:00→20:32)
[2022-02-23] MEDS: METOPROLOL TARTRATE 50 MG TABLET PO SCH ×2 (09:01→20:32)
[2022-02-23] MEDS: PANTOPRAZOLE 40 MG TABLET PO SCH ×2 (09:01→20:33)
[2022-02-23] MEDS: ALPRAZolam 0.25 MG TABLET PO SCH ×2 (09:03→20:33)
[2022-02-23] MEDS: methylPREDNISolone SOD SUC 40 MG/1 ML VIAL IV SCH ×2 (09:05→20:33)
[2022-02-23] MEDS ORDERED: FUROSEMIDE 40 MG/4 ML VIAL IV ONE (09:32)
[2022-02-23] MEDS: FUROSEMIDE 40 MG/4 ML VIAL IV SCH ×2 (10:58→20:32)
[2022-02-23 12:03] LABS: Albumin 1.8 G/DL (3.4-5.0); Bilirubin,Total 0.4 MG/DL (0.20-1.00); Calcium 9.7 MG/DL (8.5-10.1); Potassium 3.8 MMOL/L (3.5-5.1); Total Protein 5.7 G/DL (6.4-8.2)
[2022-02-23] MEDS ORDERED: ALBUMIN 25% 25 GM/100 ML VIAL IV ONE (13:23)
[2022-02-23] MEDS: cefTRIAXone 1,000 MG in SODIUM CHLORIDE 0.9% 100 ML IV SCH (15:22)
[2022-02-23] MEDS: traZODone 50 MG TABLET PO PRN (20:33)
[2022-02-23] MEDS ORDERED: APIXABAN 2.5 MG TABLET PO SCH (21:00)
[2022-02-24 00:51] LABS: H pylori Specimen source STOOL; Helicobacter pylori Result Not Detected
[2022-02-24] MEDS: LEVALBUTEROL 1.25 MG/3 ML NEB RESP TX SCH ×4 (00:58→18:47)
[2022-02-24 03:51] LABS: Eosinophils % 0.2 % (0.00-10.9); Hematocrit 30.5 VOL% (35.7-47.0); Hemoglobin 9.6 GM/DL (12.0-16.0); Immature Granulocytes % 1.6 %; Immature Granulocytes Absolute 0.07 #; Lymphocytes # 0.1 10*3/uL (1.4-4.0); Mean Corpuscular HGB Conc 31.5 GM/DL (32-36); Mean Corpuscular Volume 87.4 FL (87-102); Monocytes # 0.3 10*3/uL (0.11-0.8); Monocytes % 6.5 % (1.7-12.7); Neutrophils % 88.7 % (38.7-73.9); Platelet Count 84 T/CUMM (130-400); Red Blood Count 3.49 MC/CUMM (3.8-5.5); White Blood Count 4.3 T/CUMM (4-12)
[2022-02-24 04:09] LABS: Calcium 9.9 MG/DL (8.5-10.1); Osmolality,Calculated 312.7 MOS/KG (273-304); Potassium 3.9 MMOL/L (3.5-5.1)
[2022-02-24 04:10] LABS: Band Neutrophils 3 % (0-10); Lymphocytes 4 % (20-55); Nucleated Red Blood Cells 1 /100 WBC (0-5); Platelet Estimate Decreased; Total Cells Counted 100
[2022-02-24 04:11] LABS: Hypochromia Slight; Microcytosis Slight
[2022-02-24] MEDS: INSULIN REGULAR 100 UNIT/ML SUBCUT SCH ×4 (07:28→20:37)
[2022-02-24] MEDS ORDERED: ALPRAZolam 0.25 MG TABLET PO PRN (08:49)
[2022-02-24] MEDS: methylPREDNISolone SOD SUC 40 MG/1 ML VIAL IV SCH ×3 (08:51→22:52)
[2022-02-24] MEDS: PANTOPRAZOLE 40 MG TABLET PO SCH (08:56)
[2022-02-24] MEDS: POTASSIUM CHLORIDE 20 MEQ TABLET PO PRN (08:56)
[2022-02-24] MEDS: LIOTHYRONINE 25 MCG TABLET PO SCH (08:56)
[2022-02-24] MEDS: APIXABAN 5 MG TABLET PO SCH ×2 (08:56→20:38)
[2022-02-24] MEDS: METOPROLOL TARTRATE 50 MG TABLET PO SCH (08:56)
[2022-02-24] MEDS ORDERED: FUROSEMIDE 40 MG/4 ML VIAL IV SCH (09:00)
[2022-02-24] MEDS: FUROSEMIDE 40 MG/4 ML VIAL IV SCH (11:12)
[2022-02-24] MEDS: AZITHROMYCIN 250 MG TABLET PO SCH (11:50)
[2022-02-24] MEDS: FAMOTIDINE 20 MG/2 ML VIAL IV SCH (11:53)
[2022-02-24] MEDS: cefTRIAXone 1,000 MG in SODIUM CHLORIDE 0.9% 100 ML IV SCH (14:25)
[2022-02-24] MEDS: METOPROLOL TARTRATE 25 MG TABLET PO SCH (20:37)
[2022-02-24] MEDS: ATORVASTATIN 20 MG TABLET PO SCH (20:39)
[2022-02-25] MEDS: LEVALBUTEROL 1.25 MG/3 ML NEB RESP TX SCH ×4 (01:00→19:06)
[2022-02-25 04:09] LABS: Basophils % 0.2 % (0.0-0.8); Eosinophils % 0.2 % (0.00-10.9); Hematocrit 34.7 VOL% (35.7-47.0); Hemoglobin 10.9 GM/DL (12.0-16.0); Immature Granulocytes % 2.5 %; Immature Granulocytes Absolute 0.13 #; Lymphocytes # 0.2 10*3/uL (1.4-4.0); Lymphocytes % 3.5 % (21.3-54.2); Mean Corpuscular HGB Conc 31.4 GM/DL (32-36); Mean Corpuscular Volume 87.4 FL (87-102); Monocytes # 0.4 10*3/uL (0.11-0.8); Monocytes % 7.1 % (1.7-12.7); Neutrophils % 86.5 % (38.7-73.9); Platelet Count 63 T/CUMM (130-400); Red Blood Count 3.97 MC/CUMM (3.8-5.5); Red Cell Distribution Width 15.9 % (9.3-17.3); White Blood Count 5.1 T/CUMM (4-12)
[2022-02-25 04:35] LABS: Hypochromia Slight; Lymphocytes 3 % (20-55); Microcytosis Slight; Platelet Estimate Decreased; Total Cells Counted 100
[2022-02-25 04:36] LABS: Albumin 2.4 G/DL (3.4-5.0); Bilirubin,Total 0.6 MG/DL (0.20-1.00); Calcium 10.2 MG/DL (8.5-10.1); Osmolality,Calculated 315.8 MOS/KG (273-304); Potassium 3.9 MMOL/L (3.5-5.1)
[2022-02-25] MEDS: INSULIN REGULAR 100 UNIT/ML SUBCUT SCH ×4 (09:30→20:12)
[2022-02-25] MEDS: METOPROLOL TARTRATE 25 MG TABLET PO SCH ×2 (09:48→20:12)
[2022-02-25] MEDS: APIXABAN 5 MG TABLET PO SCH ×2 (09:48→20:12)
[2022-02-25] MEDS: AZITHROMYCIN 250 MG TABLET PO SCH (09:48)
[2022-02-25] MEDS: LIOTHYRONINE 25 MCG TABLET PO SCH (09:49)
[2022-02-25] MEDS: methylPREDNISolone SOD SUC 40 MG/1 ML VIAL IV SCH ×2 (11:01→20:12)
[2022-02-25] MEDS: FAMOTIDINE 20 MG/2 ML VIAL IV SCH (12:19)
[2022-02-25] MEDS ORDERED: SIMETHICONE CHEW 125 MG TABLET PO PRN (13:31)
[2022-02-25 15:50] LABS: % CD4 (T Cells) 0 % (32-64); % CD8 (T Cells) 49 % (8-40); 4/8 Ratio 0 (>=0.9)
[2022-02-25] MEDS: cefTRIAXone 1,000 MG in SODIUM CHLORIDE 0.9% 100 ML IV SCH (18:00)
[2022-02-25] MEDS: ATORVASTATIN 20 MG TABLET PO SCH (20:12)
[2022-02-25] MEDS: guaiFENesin/DM ER 600-30 MG TABLET PO SCH (20:12)
[2022-02-26] MEDS: LEVALBUTEROL 1.25 MG/3 ML NEB RESP TX SCH ×4 (00:21→19:35)
[2022-02-26 04:26] LABS: Basophils % 0.2 % (0.0-0.8); Eosinophils % 0.2 % (0.00-10.9); Hemoglobin 11.3 GM/DL (12.0-16.0); Immature Granulocytes % 3.9 %; Immature Granulocytes Absolute 0.23 #; Lymphocytes # 0.3 10*3/uL (1.4-4.0); Lymphocytes % 4.9 % (21.3-54.2); Mean Corpuscular HGB Conc 31.4 GM/DL (32-36); Monocytes # 0.4 10*3/uL (0.11-0.8); Neutrophils % 83.8 % (38.7-73.9); Platelet Count 66 T/CUMM (130-400); Red Blood Count 4.09 MC/CUMM (3.8-5.5); White Blood Count 5.9 T/CUMM (4-12)
[2022-02-26 04:39] LABS: Calcium 9.7 MG/DL (8.5-10.1); Osmolality,Calculated 325.4 MOS/KG (273-304); Potassium 3.9 MMOL/L (3.5-5.1)
[2022-02-26 04:56] LABS: Band Neutrophils 2 % (0-10); Lymphocytes 9 % (20-55); Platelet Estimate Decreased; Total Cells Counted 100
[2022-02-26 04:57] LABS: Hypochromia Slight; Microcytosis Slight
[2022-02-26] MEDS ORDERED: LACTATED RINGERS 1,000 ML IV SCH (09:00)
[2022-02-26] MEDS: INSULIN REGULAR 100 UNIT/ML SUBCUT SCH ×4 (09:24→20:54)
[2022-02-26] MEDS: CLINDAMYCIN INJ 600 MG/50 ML PREMIX IV SCH ×2 (09:25→15:44)
[2022-02-26] MEDS: APIXABAN 5 MG TABLET PO SCH ×2 (09:25→20:59)
[2022-02-26] MEDS: LIOTHYRONINE 25 MCG TABLET PO SCH (09:25)
[2022-02-26] MEDS: AZITHROMYCIN 250 MG TABLET PO SCH (09:26)
[2022-02-26] MEDS: METOPROLOL TARTRATE 25 MG TABLET PO SCH ×2 (09:26→20:59)
[2022-02-26] MEDS: guaiFENesin/DM ER 600-30 MG TABLET PO SCH ×2 (09:26→20:59)
[2022-02-26] MEDS: FAMOTIDINE 20 MG/2 ML VIAL IV SCH (10:54)
[2022-02-26] MEDS: cefTRIAXone 1,000 MG in SODIUM CHLORIDE 0.9% 100 ML IV SCH (15:43)
[2022-02-26] MEDS: ATORVASTATIN 20 MG TABLET PO SCH (20:59)
[2022-02-27] MEDS: CLINDAMYCIN INJ 600 MG/50 ML PREMIX IV SCH ×3 (00:10→16:09)
[2022-02-27 05:45] LABS: Basophils % 0.4 % (0.0-0.8); Eosinophils # 0.1 10*3/uL (0.0-0.87); Eosinophils % 1.6 % (0.00-10.9); Hematocrit 34.6 VOL% (35.7-47.0); Hemoglobin 10.7 GM/DL (12.0-16.0); Immature Granulocytes % 4.6 %; Immature Granulocytes Absolute 0.31 #; Lymphocytes # 0.3 10*3/uL (1.4-4.0); Lymphocytes % 4.5 % (21.3-54.2); Mean Corpuscular HGB Conc 30.9 GM/DL (32-36); Monocytes # 0.4 10*3/uL (0.11-0.8); Monocytes % 5.8 % (1.7-12.7); NRBC # 0.03 10*3/uL; Neutrophils % 83.1 % (38.7-73.9); Platelet Count 73 T/CUMM (130-400); Red Blood Count 3.93 MC/CUMM (3.8-5.5); Red Cell Distribution Width 16.2 % (9.3-17.3); White Blood Count 6.7 T/CUMM (4-12)
[2022-02-27 06:05] LABS: Albumin 1.9 G/DL (3.4-5.0); Bilirubin,Total 0.5 MG/DL (0.20-1.00); Calcium 9.6 MG/DL (8.5-10.1); Osmolality,Calculated 319.7 MOS/KG (273-304); Potassium 3.9 MMOL/L (3.5-5.1); Total Protein 5.3 G/DL (6.4-8.2)
[2022-02-27 06:43] LABS: Lymphocytes 17 % (20-55); Platelet Estimate Decreased; Total Cells Counted 100
[2022-02-27] MEDS: LEVALBUTEROL 1.25 MG/3 ML NEB RESP TX SCH ×3 (07:30→19:09)
[2022-02-27] MEDS: INSULIN REGULAR 100 UNIT/ML SUBCUT SCH (08:20)
[2022-02-27] MEDS: APIXABAN 5 MG TABLET PO SCH ×2 (08:43→20:40)
[2022-02-27] MEDS: guaiFENesin/DM ER 600-30 MG TABLET PO SCH ×2 (08:43→20:41)
[2022-02-27] MEDS: AZITHROMYCIN 250 MG TABLET PO SCH (08:43)
[2022-02-27] MEDS: METOPROLOL TARTRATE 25 MG TABLET PO SCH ×2 (08:43→20:41)
[2022-02-27] MEDS: LIOTHYRONINE 25 MCG TABLET PO SCH (08:44)
[2022-02-27] MEDS: FAMOTIDINE 20 MG/2 ML VIAL IV SCH ×2 (08:44→12:25)
[2022-02-27] MEDS: predniSONE 20 MG TABLET PO SCH ×2 (09:19→20:41)
[2022-02-27] MEDS: INSULIN LISPRO 100 UNIT/ML SUBCUT SCH ×3 (11:55→20:42)
[2022-02-27] MEDS: LACTATED RINGERS 1,000 ML IV SCH (13:37)
[2022-02-27] MEDS: PRIMAQUINE PHOSPHATE 26.3 MG TABLET PO SCH (13:37)
[2022-02-27] MEDS: cefTRIAXone 1,000 MG in SODIUM CHLORIDE 0.9% 100 ML IV SCH (15:27)
[2022-02-27] MEDS: ATORVASTATIN 20 MG TABLET PO SCH (20:41)
[2022-02-27] MEDS: MENTHOL/ZINC OXIDE OINT 71 GM JAR TOP SCH (20:44)
[2022-02-28] MEDS: LEVALBUTEROL 1.25 MG/3 ML NEB RESP TX SCH ×5 (00:25→19:02)
[2022-02-28] MEDS: CLINDAMYCIN INJ 600 MG/50 ML PREMIX IV SCH ×3 (00:35→15:47)
[2022-02-28] MEDS: LACTATED RINGERS 1,000 ML IV SCH ×4 (01:15→22:36)
[2022-02-28 05:39] LABS: Basophils % 0.2 % (0.0-0.8); Hematocrit 30.6 VOL% (35.7-47.0); Hemoglobin 9.5 GM/DL (12.0-16.0); Immature Granulocytes % 3.9 %; Immature Granulocytes Absolute 0.23 #; Lymphocytes # 0.3 10*3/uL (1.4-4.0); Lymphocytes % 5.4 % (21.3-54.2); Mean Corpuscular Volume 87.4 FL (87-102); Monocytes # 0.2 10*3/uL (0.11-0.8); Neutrophils % 87.5 % (38.7-73.9); Platelet Count 75 T/CUMM (130-400); Red Cell Distribution Width 16.1 % (9.3-17.3); White Blood Count 5.9 T/CUMM (4-12)
[2022-02-28 05:59] LABS: Albumin 1.5 G/DL (3.4-5.0); Bilirubin,Total 0.5 MG/DL (0.20-1.00); Calcium 8.8 MG/DL (8.5-10.1); Osmolality,Calculated 318.8 MOS/KG (273-304); Total Protein 4.7 G/DL (6.4-8.2)
[2022-02-28 06:02] LABS: Ovalocytes Slight
[2022-02-28 06:03] LABS: Platelet Estimate Decreased
[2022-02-28] MEDS: PRIMAQUINE PHOSPHATE 26.3 MG TABLET PO SCH (08:16)
[2022-02-28] MEDS: LIOTHYRONINE 25 MCG TABLET PO SCH (08:16)
[2022-02-28] MEDS: INSULIN LISPRO 100 UNIT/ML SUBCUT SCH ×4 (08:16→22:00)
[2022-02-28] MEDS: AZITHROMYCIN 250 MG TABLET PO SCH (08:17)
[2022-02-28] MEDS: METOPROLOL TARTRATE 25 MG TABLET PO SCH ×2 (08:17→22:38)
[2022-02-28] MEDS: predniSONE 20 MG TABLET PO SCH ×2 (08:17→22:39)
[2022-02-28] MEDS: guaiFENesin/DM ER 600-30 MG TABLET PO SCH ×2 (08:17→22:39)
[2022-02-28] MEDS: APIXABAN 5 MG TABLET PO SCH ×2 (08:17→22:38)
[2022-02-28] MEDS: MENTHOL/ZINC OXIDE OINT 71 GM JAR TOP SCH ×2 (08:18→22:36)
[2022-02-28] MEDS ORDERED: FUROSEMIDE 20 MG/2 ML VIAL IV ONE (10:12)
[2022-02-28] MEDS: FAMOTIDINE 20 MG/2 ML VIAL IV SCH (12:00)
[2022-02-28] MEDS: cefTRIAXone 1,000 MG in SODIUM CHLORIDE 0.9% 100 ML IV SCH (14:23)
[2022-02-28] MEDS: ATORVASTATIN 20 MG TABLET PO SCH (22:38)
[2022-02-28] MEDS: traZODone 50 MG TABLET PO PRN (23:47)
[2022-03-01] MEDS: CLINDAMYCIN INJ 600 MG/50 ML PREMIX IV SCH ×4 (00:06→23:24)
[2022-03-01] MEDS: LEVALBUTEROL 1.25 MG/3 ML NEB RESP TX SCH ×4 (00:15→19:12)
[2022-03-01] MEDS: LACTATED RINGERS 1,000 ML IV SCH ×4 (01:20→19:49)
[2022-03-01 05:14] LABS: Basophils % 0.1 % (0.0-0.8); Hematocrit 30.2 VOL% (35.7-47.0); Hemoglobin 9.5 GM/DL (12.0-16.0); Immature Granulocytes % 1.8 %; Immature Granulocytes Absolute 0.17 #; Lymphocytes # 0.3 10*3/uL (1.4-4.0); Lymphocytes % 3.2 % (21.3-54.2); Mean Corpuscular HGB Conc 31.5 GM/DL (32-36); Monocytes # 0.3 10*3/uL (0.11-0.8); Monocytes % 3.6 % (1.7-12.7); Neutrophils % 91.3 % (38.7-73.9); Platelet Count 108 T/CUMM (130-400); Red Blood Count 3.47 MC/CUMM (3.8-5.5); Red Cell Distribution Width 15.9 % (9.3-17.3); White Blood Count 9.5 T/CUMM (4-12)
[2022-03-01 05:32] LABS: Band Neutrophils 2 % (0-10); Lymphocytes 2 % (20-55); Platelet Estimate Decreased; Total Cells Counted 100
[2022-03-01 05:33] LABS: Hypochromia Slight; Microcytosis Slight; Ovalocytes Slight
[2022-03-01 05:40] LABS: Osmolality,Calculated 312.1 MOS/KG (273-304); Potassium 3.9 MMOL/L (3.5-5.1)
[2022-03-01] MEDS: INSULIN LISPRO 100 UNIT/ML SUBCUT SCH ×4 (09:58→20:06)
[2022-03-01] MEDS: METOPROLOL TARTRATE 25 MG TABLET PO SCH ×2 (09:59→20:06)
[2022-03-01] MEDS: guaiFENesin/DM ER 600-30 MG TABLET PO SCH ×2 (10:00→20:05)
[2022-03-01] MEDS: PRIMAQUINE PHOSPHATE 26.3 MG TABLET PO SCH (10:00)
[2022-03-01] MEDS: AZITHROMYCIN 250 MG TABLET PO SCH (10:00)
[2022-03-01] MEDS: predniSONE 20 MG TABLET PO SCH ×2 (10:00→20:06)
[2022-03-01] MEDS: LIOTHYRONINE 25 MCG TABLET PO SCH (10:01)
[2022-03-01] MEDS: APIXABAN 5 MG TABLET PO SCH ×2 (10:01→20:06)
[2022-03-01] MEDS: MENTHOL/ZINC OXIDE OINT 71 GM JAR TOP SCH ×2 (10:15→20:06)
[2022-03-01] MEDS: FAMOTIDINE 20 MG/2 ML VIAL IV SCH (12:48)
[2022-03-01] MEDS: cefTRIAXone 1,000 MG in SODIUM CHLORIDE 0.9% 100 ML IV SCH (15:27)
[2022-03-01] MEDS: ATORVASTATIN 20 MG TABLET PO SCH (20:06)
[2022-03-01] MEDS ORDERED: MELATONIN 3 MG TABLET PO ONE (23:45)
[2022-03-02] MEDS: LEVALBUTEROL 1.25 MG/3 ML NEB RESP TX SCH ×4 (00:07→19:10)
[2022-03-02] MEDS: LACTATED RINGERS 1,000 ML IV SCH ×2 (01:26→15:28)
[2022-03-02] MEDS: INSULIN LISPRO 100 UNIT/ML SUBCUT SCH ×4 (08:52→21:01)
[2022-03-02] MEDS: predniSONE 20 MG TABLET PO SCH ×2 (08:53→20:16)
[2022-03-02] MEDS: PRIMAQUINE PHOSPHATE 26.3 MG TABLET PO SCH (08:53)
[2022-03-02] MEDS: guaiFENesin/DM ER 600-30 MG TABLET PO SCH ×2 (08:53→20:16)
[2022-03-02] MEDS: LIOTHYRONINE 25 MCG TABLET PO SCH (08:53)
[2022-03-02] MEDS: APIXABAN 5 MG TABLET PO SCH ×2 (08:54→20:16)
[2022-03-02] MEDS: METOPROLOL TARTRATE 25 MG TABLET PO SCH ×2 (08:54→20:17)
[2022-03-02] MEDS: AZITHROMYCIN 250 MG TABLET PO SCH (08:54)
[2022-03-02] MEDS: CLINDAMYCIN INJ 600 MG/50 ML PREMIX IV SCH ×3 (09:04→23:11)
[2022-03-02] MEDS: MENTHOL/ZINC OXIDE OINT 71 GM JAR TOP SCH ×2 (09:06→21:02)
[2022-03-02] MEDS: FAMOTIDINE 20 MG/2 ML VIAL IV SCH (11:58)
[2022-03-02] MEDS: ATORVASTATIN 20 MG TABLET PO SCH (20:17)
[2022-03-03] MEDS: LEVALBUTEROL 1.25 MG/3 ML NEB RESP TX SCH ×4 (00:32→19:00)
[2022-03-03 05:19] LABS: Basophils % 0.2 % (0.0-0.8); Hematocrit 28.5 VOL% (35.7-47.0); Hemoglobin 8.7 GM/DL (12.0-16.0); Immature Granulocytes % 1.8 %; Immature Granulocytes Absolute 0.21 #; Lymphocytes # 0.3 10*3/uL (1.4-4.0); Lymphocytes % 2.6 % (21.3-54.2); Mean Corpuscular HGB Conc 30.5 GM/DL (32-36); Mean Corpuscular Volume 87.2 FL (87-102); Monocytes # 0.5 10*3/uL (0.11-0.8); Neutrophils % 91.4 % (38.7-73.9); Platelet Count 94 T/CUMM (130-400); Red Blood Count 3.27 MC/CUMM (3.8-5.5); Red Cell Distribution Width 16.1 % (9.3-17.3); White Blood Count 11.7 T/CUMM (4-12)
[2022-03-03 05:37] LABS: Calcium 8.5 MG/DL (8.5-10.1); Osmolality,Calculated 308.3 MOS/KG (273-304); Potassium 3.8 MMOL/L (3.5-5.1)
[2022-03-03 05:38] LABS: Band Neutrophils 4 % (0-10); Hypochromia 1+; Lymphocytes 2 % (20-55); Microcytosis Slight; Ovalocytes Slight; Total Cells Counted 100
[2022-03-03] MEDS: METOPROLOL TARTRATE 25 MG TABLET PO SCH ×2 (08:41→20:14)
[2022-03-03] MEDS: AZITHROMYCIN 250 MG TABLET PO SCH (08:41)
[2022-03-03] MEDS: PRIMAQUINE PHOSPHATE 26.3 MG TABLET PO SCH (08:41)
[2022-03-03] MEDS: LIOTHYRONINE 25 MCG TABLET PO SCH (08:41)
[2022-03-03] MEDS: predniSONE 20 MG TABLET PO SCH ×2 (08:42→20:15)
[2022-03-03] MEDS: CLINDAMYCIN INJ 600 MG/50 ML PREMIX IV SCH ×3 (08:42→23:33)
[2022-03-03] MEDS: APIXABAN 5 MG TABLET PO SCH ×2 (08:42→20:15)
[2022-03-03] MEDS: guaiFENesin/DM ER 600-30 MG TABLET PO SCH ×2 (08:42→20:14)
[2022-03-03] MEDS: MENTHOL/ZINC OXIDE OINT 71 GM JAR TOP SCH ×2 (08:57→23:34)
[2022-03-03] MEDS: INSULIN LISPRO 100 UNIT/ML SUBCUT SCH ×4 (10:24→21:20)
[2022-03-03] MEDS: FAMOTIDINE 20 MG/2 ML VIAL IV SCH (11:59)
[2022-03-03] MEDS: LACTATED RINGERS 1,000 ML IV SCH (18:08)
[2022-03-03] MEDS: ACETAMINOPHEN 325 MG TABLET PO PRN (20:15)
[2022-03-03] MEDS: ATORVASTATIN 20 MG TABLET PO SCH (20:15)
[2022-03-03 23:16] LABS: Fungitell Quantitative Value > 500 pg/mL (<60 pg/mL)
[2022-03-04] MEDS: LEVALBUTEROL 1.25 MG/3 ML NEB RESP TX SCH ×4 (00:33→19:57)
[2022-03-04 06:01] LABS: Basophils % 0.2 % (0.0-0.8); Hematocrit 29.7 VOL% (35.7-47.0); Hemoglobin 9.4 GM/DL (12.0-16.0); Immature Granulocytes % 2.2 %; Immature Granulocytes Absolute 0.23 #; Lymphocytes # 0.3 10*3/uL (1.4-4.0); Lymphocytes % 2.5 % (21.3-54.2); Mean Corpuscular HGB Conc 31.6 GM/DL (32-36); Mean Corpuscular Volume 86.3 FL (87-102); Monocytes # 0.4 10*3/uL (0.11-0.8); Monocytes % 3.7 % (1.7-12.7); Neutrophils % 91.4 % (38.7-73.9); Platelet Count 85 T/CUMM (130-400); Red Blood Count 3.44 MC/CUMM (3.8-5.5); Red Cell Distribution Width 16.4 % (9.3-17.3); White Blood Count 10.4 T/CUMM (4-12)
[2022-03-04 06:25] LABS: Platelet Estimate Decreased; Total Cells Counted 100
[2022-03-04 06:30] LABS: Albumin 1.3 G/DL (3.4-5.0); Bilirubin,Total 0.5 MG/DL (0.20-1.00); Calcium 8.6 MG/DL (8.5-10.1); Osmolality,Calculated 307.4 MOS/KG (273-304); Potassium 4.1 MMOL/L (3.5-5.1); Total Protein 4.4 G/DL (6.4-8.2)
[2022-03-04] MEDS: INSULIN LISPRO 100 UNIT/ML SUBCUT SCH ×4 (08:51→22:43)
[2022-03-04] MEDS: MENTHOL/ZINC OXIDE OINT 71 GM JAR TOP SCH ×2 (09:02→23:36)
[2022-03-04] MEDS: CLINDAMYCIN INJ 600 MG/50 ML PREMIX IV SCH ×4 (09:04→23:36)
[2022-03-04] MEDS: guaiFENesin/DM ER 600-30 MG TABLET PO SCH ×2 (09:04→20:56)
[2022-03-04] MEDS: LIOTHYRONINE 25 MCG TABLET PO SCH (09:04)
[2022-03-04] MEDS: METOPROLOL TARTRATE 25 MG TABLET PO SCH ×2 (09:05→20:55)
[2022-03-04] MEDS: PRIMAQUINE PHOSPHATE 26.3 MG TABLET PO SCH (09:05)
[2022-03-04] MEDS: APIXABAN 5 MG TABLET PO SCH ×2 (09:05→20:56)
[2022-03-04] MEDS: predniSONE 20 MG TABLET PO SCH (09:05)
[2022-03-04] MEDS ORDERED: FUROSEMIDE 40 MG/4 ML VIAL IV ONE (09:45)
[2022-03-04] MEDS: FAMOTIDINE 20 MG/2 ML VIAL IV SCH (14:10)
[2022-03-04] MEDS: ATORVASTATIN 20 MG TABLET PO SCH (20:56)
[2022-03-05] MEDS: LEVALBUTEROL 1.25 MG/3 ML NEB RESP TX SCH ×4 (00:47→18:59)
[2022-03-05 06:12] LABS: Basophils % 0.2 % (0.0-0.8); Eosinophils % 0.3 % (0.00-10.9); Hemoglobin 10.1 GM/DL (12.0-16.0); Immature Granulocytes % 2.1 %; Immature Granulocytes Absolute 0.23 #; Lymphocytes # 0.3 10*3/uL (1.4-4.0); Mean Corpuscular HGB Conc 31.6 GM/DL (32-36); Mean Corpuscular Volume 85.3 FL (87-102); Monocytes # 0.4 10*3/uL (0.11-0.8); Monocytes % 3.9 % (1.7-12.7); Neutrophils % 90.5 % (38.7-73.9); Platelet Count 96 T/CUMM (130-400); Red Blood Count 3.75 MC/CUMM (3.8-5.5); Red Cell Distribution Width 16.5 % (9.3-17.3); White Blood Count 11.2 T/CUMM (4-12)
[2022-03-05 06:37] LABS: Band Neutrophils 2 % (0-10); Lymphocytes 1 % (20-55); Ovalocytes Few; Total Cells Counted 100
[2022-03-05 06:38] LABS: Hypochromia Slight; Microcytosis 1+
[2022-03-05 06:39] LABS: Platelet Estimate Decreased; Target Cells Slight
[2022-03-05 06:51] LABS: Albumin 1.3 G/DL (3.4-5.0); Bilirubin,Total 0.5 MG/DL (0.20-1.00); Calcium 8.5 MG/DL (8.5-10.1); Osmolality,Calculated 305.7 MOS/KG (273-304); Potassium 4.2 MMOL/L (3.5-5.1); Total Protein 4.6 G/DL (6.4-8.2)
[2022-03-05] MEDS ORDERED: predniSONE 20 MG TABLET PO SCH (09:00)
[2022-03-05] MEDS ORDERED: MORPHINE 2 MG/1 ML SYRINGE IV ONE ×2 (09:21→20:34)
[2022-03-05] MEDS ORDERED: FUROSEMIDE 40 MG/4 ML VIAL ONE (09:22)
[2022-03-05] MEDS ORDERED: FUROSEMIDE 40 MG/4 ML VIAL IV ONE (09:22)
[2022-03-05 09:31] LABS: Arterial Base Excess iSTAT -3 MMOL/L (-2.5-2.5); Arterial O2 Saturation iSTAT 92 % (95-100); Arterial PCO2 iSTAT 31 MM HG (35-48); Arterial PO2 iSTAT 61 MM HG (80-95); Arterial Total CO2 iSTAT 22 MMO/L (23-27); Arterial pH iSTAT 7.433 (7.35-7.45)
[2022-03-05] MEDS: INSULIN LISPRO 100 UNIT/ML SUBCUT SCH ×4 (09:35→23:28)
[2022-03-05] MEDS ORDERED: ETOMIDATE 20 MG/10 ML VIAL IV ONE ×2 (09:41→09:53)
[2022-03-05] MEDS ORDERED: ROCURONIUM 100 MG/10 ML VIAL IV ONE ×2 (09:41→09:53)
[2022-03-05] MEDS ORDERED: MIDAZOLAM 2 MG/2 ML VIAL IV ONE (09:51)
[2022-03-05] MEDS ORDERED: LEVALBUTEROL 1.25 MG/3 ML NEB RESP TX ONE (10:02)
[2022-03-05] MEDS ORDERED: METOPROLOL TARTRATE 5 MG/5 ML VIAL IV ONE ×2 (10:07→10:10)
[2022-03-05 10:13] LABS: Lactic Acid 2.3 MMOL/L (0.4-2.0)
[2022-03-05] MEDS: MIDAZOLAM 100 MG in SODIUM CHLORIDE 0.9% 80 ML IV PRN (10:15)
[2022-03-05 10:19] LABS: Calcium 8.1 MG/DL (8.5-10.1); Osmolality,Calculated 304.7 MOS/KG (273-304); Potassium 4.2 MMOL/L (3.5-5.1)
[2022-03-05] MEDS ORDERED: SODIUM CHLORIDE 0.9% 1,000 ML IV ONE ×2 (10:34→12:20)
[2022-03-05 10:47] LABS: Hyaline Casts,Urine 73 /LPF (0-3); Mucus,Urine Few /LPF (Occasional); RBC,Urine 465 /HPF (0-4); Urine Appearance Turbid (Clear); Urine Color Yellow (Yellow)
[2022-03-05 10:48] LABS: Bilirubin,Urine Negative (Negative); Blood, Urine Moderate mg/dL (Negative); Glucose,Urine (UA) Negative (Negative); Ketones,Urine Negative (Negative); Nitrite,Urine Negative (Negative); Protein,Urine >=300 mg/dL (Negative); Urine Specific Gravity 1.025 (1.001-1.035); Urine Urobilinogen 0.2 eU/dL (<2.0); Urine pH 5.5 (4.5-8.0)
[2022-03-05 10:49] LABS: Arterial Base Excess iSTAT -3 MMOL/L (-2.5-2.5); Arterial O2 Saturation iSTAT 99 % (95-100); Arterial PCO2 iSTAT 60 MM HG (35-48); Arterial PO2 iSTAT 199 MM HG (80-95); Arterial Total CO2 iSTAT 27 MMO/L (23-27); Arterial pH iSTAT 7.228 (7.35-7.45)
[2022-03-05] MEDS: MENTHOL/ZINC OXIDE OINT 71 GM JAR TOP SCH (11:30)
[2022-03-05] MEDS: METOPROLOL TARTRATE 25 MG TABLET PO SCH (11:32)
[2022-03-05 11:46] LABS: ABG Base Excess -6.8 MMOL/L (-2.5-2.5); ABG HCO3 18.8 MMOL/L (20-26); ABG PCO2 58.7 MM HG (35-48); ABG TCO2 20.8 MMOL/L (23-27)
[2022-03-05 11:49] LABS: ABG PH 7.183 (7.35-7.45)
[2022-03-05] MEDS ORDERED: SODIUM BICARBONATE 50 MEQ/50 ML VIAL IV ONE ×3 (11:52→22:05)
[2022-03-05] MEDS ORDERED: PHENYLEPHRINE DRIP 40 MG/250 ML PREMIX IV ONE (11:57)
[2022-03-05] MEDS: methylPREDNISolone SOD SUC 40 MG/1 ML VIAL IV SCH ×2 (12:00→22:10)
[2022-03-05] MEDS: PHENYLEPHRINE DRIP 40 MG/250 ML PREMIX IV PRN (12:00)
[2022-03-05] MEDS: FAMOTIDINE 20 MG/2 ML VIAL IV SCH (12:00)
[2022-03-05] MEDS: SODIUM CHLORIDE 0.9% 1,000 ML IV SCH ×2 (12:00→20:25)
[2022-03-05] MEDS: CLINDAMYCIN INJ 600 MG/50 ML PREMIX IV SCH ×2 (12:21→20:23)
[2022-03-05] MEDS: guaiFENesin/DM ER 600-30 MG TABLET PO SCH ×2 (12:23→20:24)
[2022-03-05] MEDS: APIXABAN 5 MG TABLET PO SCH ×2 (12:23→20:24)
[2022-03-05] MEDS: LIOTHYRONINE 25 MCG TABLET PO SCH (12:24)
[2022-03-05 13:10] LABS: ABG Base Excess -4.9 MMOL/L (-2.5-2.5); ABG HCO3 20.3 MMOL/L (20-26); ABG Oxygen Saturation 96.9 % (95-100); ABG PH 7.219 (7.35-7.45)
[2022-03-05] MEDS ORDERED: ALBUMIN 5% 12.5 GM/250 ML VIAL IV ONE (13:33)
[2022-03-05] MEDS: PRIMAQUINE PHOSPHATE 26.3 MG TABLET PO SCH (13:37)
[2022-03-05] MEDS: METOPROLOL TARTRATE 5 MG/5 ML VIAL IV SCH ×2 (16:19→21:51)
[2022-03-05] MEDS ORDERED: SODIUM CHLORIDE 0.9% 500 ML IV ONE (19:48)
[2022-03-05] MEDS: ATORVASTATIN 20 MG TABLET PO SCH (20:23)
[2022-03-05 21:59] LABS: ABG HCO3 17.9 MMOL/L (20-26); ABG Oxygen Saturation 98.4 % (95-100); ABG PCO2 52.2 MM HG (35-48); ABG TCO2 19.2 MMOL/L (23-27)
[2022-03-05 22:01] LABS: ABG PH 7.194 (7.35-7.45)
[2022-03-06] MEDS: LEVALBUTEROL 1.25 MG/3 ML NEB RESP TX SCH ×4 (00:05→19:32)
[2022-03-06 03:47] LABS: ABG Base Excess -4.7 MMOL/L (-2.5-2.5); ABG HCO3 20.5 MMOL/L (20-26); ABG Oxygen Saturation 98.3 % (95-100); ABG PCO2 50.3 MM HG (35-48); ABG PH 7.258 (7.35-7.45); ABG TCO2 21.2 MMOL/L (23-27)
[2022-03-06 04:02] LABS: Basophils % 0.1 % (0.0-0.8); Hematocrit 26.8 VOL% (35.7-47.0); Hemoglobin 8.2 GM/DL (12.0-16.0); Immature Granulocytes % 1.1 %; Immature Granulocytes Absolute 0.15 #; Lymphocytes # 0.3 10*3/uL (1.4-4.0); Lymphocytes % 1.8 % (21.3-54.2); Mean Corpuscular HGB Conc 30.6 GM/DL (32-36); Mean Corpuscular Volume 90.2 FL (87-102); Monocytes # 0.6 10*3/uL (0.11-0.8); Monocytes % 4.2 % (1.7-12.7); Neutrophils % 92.8 % (38.7-73.9); Platelet Count 89 T/CUMM (130-400); Red Blood Count 2.97 MC/CUMM (3.8-5.5); Red Cell Distribution Width 16.9 % (9.3-17.3); White Blood Count 13.8 T/CUMM (4-12)
[2022-03-06] MEDS: METOPROLOL TARTRATE 5 MG/5 ML VIAL IV SCH ×5 (04:02→21:16)
[2022-03-06 04:07] LABS: Osmolality,Calculated 318.7 MOS/KG (273-304); Potassium 4.4 MMOL/L (3.5-5.1)
[2022-03-06] MEDS: CLINDAMYCIN INJ 600 MG/50 ML PREMIX IV SCH ×2 (04:07→11:20)
[2022-03-06] MEDS: MORPHINE 2 MG/1 ML SYRINGE IV PRN (04:08)
[2022-03-06 04:23] LABS: Band Neutrophils 2 % (0-10); Lymphocytes 1 % (20-55); Total Cells Counted 100
[2022-03-06 04:24] LABS: Hypochromia Slight
[2022-03-06 04:25] LABS: Ovalocytes Slight
[2022-03-06 04:26] LABS: Microcytosis 1+; Platelet Estimate Decreased
[2022-03-06] MEDS: INSULIN LISPRO 100 UNIT/ML SUBCUT SCH ×4 (05:30→23:31)
[2022-03-06] MEDS: PHENYLEPHRINE DRIP 40 MG/250 ML PREMIX IV PRN ×3 (07:15→20:04)
[2022-03-06] MEDS: guaiFENesin/DM ER 600-30 MG TABLET PO SCH ×2 (08:05→21:05)
[2022-03-06] MEDS: LIOTHYRONINE 25 MCG TABLET PO SCH (08:05)
[2022-03-06] MEDS: PRIMAQUINE PHOSPHATE 26.3 MG TABLET PO SCH (08:05)
[2022-03-06] MEDS: APIXABAN 5 MG TABLET PO SCH ×2 (08:05→21:05)
[2022-03-06] MEDS: SODIUM CHLORIDE 0.9% 1,000 ML IV SCH ×4 (08:10→23:31)
[2022-03-06] MEDS: FAMOTIDINE 20 MG/2 ML VIAL IV SCH (11:15)
[2022-03-06] MEDS: methylPREDNISolone SOD SUC 40 MG/1 ML VIAL IV SCH ×2 (11:15→22:37)
[2022-03-06] MEDS ORDERED: FLUCONAZOLE INJ 400 MG/200 ML PREMIX IV ONE (11:30)
[2022-03-06] MEDS: SULFAMETHOX/TRIMETHOPRIM 200-40 MG/5 ML -20 ML UDCUP PO SCH ×2 (12:20→21:11)
[2022-03-06] MEDS: MENTHOL/ZINC OXIDE OINT 71 GM JAR TOP SCH ×3 (13:00→21:06)
[2022-03-06] MEDS: MIDAZOLAM 100 MG in SODIUM CHLORIDE 0.9% 80 ML IV PRN (15:10)
[2022-03-06] MEDS: fentaNYL INJ 1,250 MCG in SODIUM CHLORIDE 0.9% 225 ML IV PRN (20:05)
[2022-03-06] MEDS: ATORVASTATIN 20 MG TABLET PO SCH (21:06)
[2022-03-07] MEDS: LEVALBUTEROL 1.25 MG/3 ML NEB RESP TX SCH ×4 (00:28→19:05)
[2022-03-07] MEDS: METOPROLOL TARTRATE 5 MG/5 ML VIAL IV SCH ×4 (03:22→22:49)
[2022-03-07 04:12] LABS: ABG Base Excess -6.7 MMOL/L (-2.5-2.5); ABG HCO3 18.9 MMOL/L (20-26); ABG PCO2 47.4 MM HG (35-48); ABG PH 7.242 (7.35-7.45); ABG TCO2 19.6 MMOL/L (23-27)
[2022-03-07 04:20] LABS: Basophils % 0.1 % (0.0-0.8); Hematocrit 23.5 VOL% (35.7-47.0); Hemoglobin 7.1 GM/DL (12.0-16.0); Immature Granulocytes % 1.9 %; Immature Granulocytes Absolute 0.42 #; Lymphocytes # 0.2 10*3/uL (1.4-4.0); Mean Corpuscular HGB Conc 30.2 GM/DL (32-36); Mean Corpuscular Volume 90.4 FL (87-102); Monocytes # 0.7 10*3/uL (0.11-0.8); Monocytes % 3.3 % (1.7-12.7); Neutrophils % 93.7 % (38.7-73.9); Platelet Count 73 T/CUMM (130-400); Red Cell Distribution Width 17.7 % (9.3-17.3)
[2022-03-07 04:38] LABS: Band Neutrophils 3 % (0-10); Hypochromia Slight; Microcytosis Slight; Platelet Estimate Decreased; Total Cells Counted 100
[2022-03-07 04:39] LABS: Ovalocytes Slight
[2022-03-07 04:40] LABS: Alanine Aminotransferase 47 U/L (13-56); Alkaline Phosphatase 229 U/L (45-117); Aspartate Amino Transferase 88 U/L (0-37); Bilirubin,Total < 0.39 MG/DL (0.20-1.00); Blood Urea Nitrogen 97 MG/DL (7-18); Calcium 6.5 MG/DL (8.5-10.1); Carbon Dioxide 22 MMOL/L (21-32); Chloride 120 MMOL/L (98-107); Glucose 130 MG/DL (74-106); Potassium 3.9 MMOL/L (3.5-5.1); Sodium 150 MMOL/L (136-145); Total Protein 3.9 G/DL (6.4-8.2)
[2022-03-07] MEDS: fentaNYL INJ 1,250 MCG in SODIUM CHLORIDE 0.9% 225 ML IV PRN ×3 (05:26→21:09)
[2022-03-07] MEDS: INSULIN LISPRO 100 UNIT/ML SUBCUT SCH ×3 (05:35→18:05)
[2022-03-07] MEDS: SODIUM CHLORIDE 0.9% 1,000 ML IV SCH ×2 (05:36→07:45)
[2022-03-07] MEDS: MORPHINE 2 MG/1 ML SYRINGE IV PRN (08:10)
[2022-03-07] MEDS: APIXABAN 5 MG TABLET PO SCH ×2 (08:10→22:24)
[2022-03-07] MEDS: guaiFENesin/DM ER 600-30 MG TABLET PO SCH ×2 (08:10→22:24)
[2022-03-07] MEDS: SULFAMETHOX/TRIMETHOPRIM 200-40 MG/5 ML -20 ML UDCUP PO SCH ×2 (08:10→22:26)
[2022-03-07] MEDS: LIOTHYRONINE 25 MCG TABLET PO SCH (08:10)
[2022-03-07] MEDS: FLUCONAZOLE INJ 200 MG/100 ML PREMIX IV SCH (08:15)
[2022-03-07] MEDS ORDERED: SODIUM CHLORIDE 0.9% 1,000 ML IV PRN (09:40)
[2022-03-07] MEDS: MIDAZOLAM 100 MG in SODIUM CHLORIDE 0.9% 80 ML IV PRN (09:50)
[2022-03-07] MEDS: MENTHOL/ZINC OXIDE OINT 71 GM JAR TOP SCH ×2 (11:30→22:27)
[2022-03-07] MEDS: FAMOTIDINE 20 MG/2 ML VIAL IV SCH (11:50)
[2022-03-07] MEDS: methylPREDNISolone SOD SUC 40 MG/1 ML VIAL IV SCH (11:50)
[2022-03-07] MEDS ORDERED: SODIUM CHLORIDE 0.9% 1,000 ML IV SCH (12:45)
[2022-03-07] MEDS: PHENYLEPHRINE DRIP 40 MG/250 ML PREMIX IV PRN (14:20)
[2022-03-07] MEDS: ATORVASTATIN 20 MG TABLET PO SCH (22:24)
[2022-03-08] MEDS: LEVALBUTEROL 1.25 MG/3 ML NEB RESP TX SCH ×4 (00:15→19:23)
[2022-03-08] MEDS: INSULIN LISPRO 100 UNIT/ML SUBCUT SCH ×5 (01:15→23:50)
[2022-03-08] MEDS: methylPREDNISolone SOD SUC 40 MG/1 ML VIAL IV SCH ×3 (01:17→21:59)
[2022-03-08] MEDS: MIDAZOLAM 100 MG in SODIUM CHLORIDE 0.9% 80 ML IV PRN ×2 (01:23→19:19)
[2022-03-08] MEDS: METOPROLOL TARTRATE 5 MG/5 ML VIAL IV SCH ×4 (03:54→21:59)
[2022-03-08] MEDS: fentaNYL INJ 1,250 MCG in SODIUM CHLORIDE 0.9% 225 ML IV PRN ×3 (03:55→17:44)
[2022-03-08 05:11] LABS: Basophils % 0.1 % (0.0-0.8); Hematocrit 27.7 VOL% (35.7-47.0); Hemoglobin 8.4 GM/DL (12.0-16.0); Immature Granulocytes % 2.5 %; Immature Granulocytes Absolute 0.49 #; Lymphocytes # 0.2 10*3/uL (1.4-4.0); Lymphocytes % 0.8 % (21.3-54.2); Mean Corpuscular HGB Conc 30.3 GM/DL (32-36); Mean Corpuscular Volume 88.2 FL (87-102); Monocytes # 0.7 10*3/uL (0.11-0.8); Monocytes % 3.3 % (1.7-12.7); NRBC # 0.06 10*3/uL; Neutrophils % 93.3 % (38.7-73.9); Red Blood Count 3.14 MC/CUMM (3.8-5.5); Red Cell Distribution Width 19.5 % (9.3-17.3); White Blood Count 19.4 T/CUMM (4-12)
[2022-03-08 05:14] LABS: Platelet Count 80 T/CUMM (130-400)
[2022-03-08 05:16] LABS: ABG Base Excess -12.1 MMOL/L (-2.5-2.5); ABG HCO3 14.8 MMOL/L (20-26); ABG Oxygen Saturation 96.6 % (95-100); ABG PCO2 45.3 MM HG (35-48); ABG PO2 99.1 MM HG (80-95); ABG TCO2 15.4 MMOL/L (23-27)
[2022-03-08 05:26] LABS: ABG PH 7.159 (7.35-7.45)
[2022-03-08 05:35] LABS: Alanine Aminotransferase 45 U/L (13-56); Alkaline Phosphatase 278 U/L (45-117); Aspartate Amino Transferase 104 U/L (0-37); Bilirubin,Total < 0.39 MG/DL (0.20-1.00); Blood Urea Nitrogen 96 MG/DL (7-18); Calcium 6.5 MG/DL (8.5-10.1); Carbon Dioxide 16 MMOL/L (21-32); Chloride 119 MMOL/L (98-107); Glucose 108 MG/DL (74-106); Osmolality,Calculated 318.7 MOS/KG (273-304); Potassium 4.3 MMOL/L (3.5-5.1); Sodium 145 MMOL/L (136-145); Total Protein 3.9 G/DL (6.4-8.2)
[2022-03-08 05:43] LABS: Band Neutrophils 2 % (0-10); Hypochromia Slight; Lymphocytes 2 % (20-55); Microcytosis Slight; Ovalocytes Slight; Platelet Estimate Decreased; Total Cells Counted 100
[2022-03-08 05:44] LABS: Burr Cells Slight
[2022-03-08] MEDS ORDERED: SODIUM BICARBONATE 50 MEQ/50 ML VIAL IV ONE (06:12)
[2022-03-08] MEDS: MORPHINE 2 MG/1 ML SYRINGE IV PRN (06:59)
[2022-03-08] MEDS ORDERED: ROCURONIUM 500 MG in SODIUM CHLORIDE 0.9% 500 ML IV PRN (07:11)
[2022-03-08] MEDS: MENTHOL/ZINC OXIDE OINT 71 GM JAR TOP SCH ×2 (08:11→20:15)
[2022-03-08] MEDS: LIOTHYRONINE 25 MCG TABLET PO SCH (08:11)
[2022-03-08] MEDS: APIXABAN 5 MG TABLET PO SCH ×2 (08:11→20:16)
[2022-03-08] MEDS: SULFAMETHOX/TRIMETHOPRIM 200-40 MG/5 ML -20 ML UDCUP PO SCH ×2 (08:11→20:15)
[2022-03-08] MEDS: guaiFENesin/DM ER 600-30 MG TABLET PO SCH ×2 (08:12→20:16)
[2022-03-08] MEDS: FLUCONAZOLE INJ 200 MG/100 ML PREMIX IV SCH (08:37)
[2022-03-08] MEDS: SODIUM BICARB INJ 100 MEQ in DEXTROSE 5% 1,000 ML IV SCH ×2 (08:37→20:52)
[2022-03-08] MEDS: FAMOTIDINE 20 MG/2 ML VIAL IV SCH (12:26)
[2022-03-08] MEDS: PHENYLEPHRINE DRIP 40 MG/250 ML PREMIX IV PRN (17:20)
[2022-03-08] MEDS: ATORVASTATIN 20 MG TABLET PO SCH (20:16)
[2022-03-09] MEDS: LEVALBUTEROL 1.25 MG/3 ML NEB RESP TX SCH ×4 (00:24→19:17)
[2022-03-09] MEDS: fentaNYL INJ 1,250 MCG in SODIUM CHLORIDE 0.9% 225 ML IV PRN (01:10)
[2022-03-09 03:35] LABS: ABG Base Excess -7.6 MMOL/L (-2.5-2.5); ABG HCO3 18.2 MMOL/L (20-26); ABG Oxygen Saturation 97.5 % (95-100); ABG PCO2 60.3 MM HG (35-48); ABG TCO2 20.5 MMOL/L (23-27); Basophils % 0.1 % (0.0-0.8); Hematocrit 26.6 VOL% (35.7-47.0); Immature Granulocytes % 1.2 %; Lymphocytes # 0.1 10*3/uL (1.4-4.0); Lymphocytes % 0.5 % (21.3-54.2); Mean Corpuscular HGB Conc 30.1 GM/DL (32-36); Mean Corpuscular Volume 88.7 FL (87-102); Monocytes # 0.6 10*3/uL (0.11-0.8); Monocytes % 3.6 % (1.7-12.7); NRBC # 0.13 10*3/uL; Neutrophils % 94.6 % (38.7-73.9); Red Cell Distribution Width 20.9 % (9.3-17.3); White Blood Count 17.4 T/CUMM (4-12)
[2022-03-09 03:39] LABS: Platelet Count 40 T/CUMM (130-400)
[2022-03-09 03:56] LABS: Band Neutrophils 6 % (0-10); Nucleated Red Blood Cells 1 /100 WBC (0-5); Total Cells Counted 100
[2022-03-09 03:57] LABS: Hypochromia Slight; Microcytosis Slight; Ovalocytes Few
[2022-03-09 03:58] LABS: Platelet Estimate Decreased; Target Cells Slight
[2022-03-09 04:11] LABS: Alanine Aminotransferase 46 U/L (13-56); Albumin 0.9 G/DL (3.4-5.0); Alkaline Phosphatase 290 U/L (45-117); Aspartate Amino Transferase 96 U/L (0-37); Bilirubin,Total < 0.39 MG/DL (0.20-1.00); Blood Urea Nitrogen 96 MG/DL (7-18); Carbon Dioxide 23 MMOL/L (21-32); Chloride 115 MMOL/L (98-107); Glucose 184 MG/DL (74-106); Osmolality,Calculated 324.6 MOS/KG (273-304); Potassium 4.5 MMOL/L (3.5-5.1); Sodium 146 MMOL/L (136-145); Total Protein 3.6 G/DL (6.4-8.2)
[2022-03-09 04:12] LABS: Calcium 5.7 MG/DL (8.5-10.1)
[2022-03-09] MEDS ORDERED: CALCIUM GLUCONATE RIDER 1,000 MG/50 ML PREMIX IV ONE (04:16)
[2022-03-09] MEDS: METOPROLOL TARTRATE 5 MG/5 ML VIAL IV SCH ×4 (04:27→21:11)
[2022-03-09] MEDS: INSULIN LISPRO 100 UNIT/ML SUBCUT SCH ×3 (05:57→18:22)
[2022-03-09] MEDS: SODIUM BICARB INJ 100 MEQ in DEXTROSE 5% 1,000 ML IV SCH ×2 (08:30→18:52)
[2022-03-09] MEDS: APIXABAN 5 MG TABLET PO SCH ×2 (09:28→21:11)
[2022-03-09] MEDS: guaiFENesin/DM ER 600-30 MG TABLET PO SCH ×2 (09:28→21:11)
[2022-03-09] MEDS: SULFAMETHOX/TRIMETHOPRIM 200-40 MG/5 ML -20 ML UDCUP PO SCH ×2 (09:31→21:11)
[2022-03-09] MEDS: methylPREDNISolone SOD SUC 40 MG/1 ML VIAL IV SCH ×2 (09:32→22:40)
[2022-03-09] MEDS: LIOTHYRONINE 25 MCG TABLET PO SCH (09:36)
[2022-03-09] MEDS: FAMOTIDINE 20 MG/2 ML VIAL IV SCH (10:00)
[2022-03-09] MEDS: FLUCONAZOLE INJ 200 MG/100 ML PREMIX IV SCH (10:00)
[2022-03-09] MEDS: MENTHOL/ZINC OXIDE OINT 71 GM JAR TOP SCH ×2 (16:39→21:11)
[2022-03-09] MEDS: PHENYLEPHRINE DRIP 40 MG/250 ML PREMIX IV PRN (20:39)
[2022-03-09] MEDS: ATORVASTATIN 20 MG TABLET PO SCH (21:11)
[2022-03-10] MEDS: LEVALBUTEROL 1.25 MG/3 ML NEB RESP TX SCH ×4 (00:09→19:00)
[2022-03-10] MEDS: INSULIN LISPRO 100 UNIT/ML SUBCUT SCH ×4 (00:23→18:30)
[2022-03-10] MEDS: METOPROLOL TARTRATE 5 MG/5 ML VIAL IV SCH ×4 (03:28→22:17)
[2022-03-10 03:49] LABS: ABG HCO3 18.7 MMOL/L (20-26); ABG Oxygen Saturation 97.8 % (95-100); ABG PCO2 66.3 MM HG (35-48); ABG TCO2 21.8 MMOL/L (23-27)
[2022-03-10 03:50] LABS: Basophils % 0.1 % (0.0-0.8); Hematocrit 29.6 VOL% (35.7-47.0); Immature Granulocytes % 0.7 %; Immature Granulocytes Absolute 0.16 #; Mean Corpuscular HGB Conc 30.4 GM/DL (32-36); Mean Corpuscular Volume 88.4 FL (87-102); Monocytes # 0.8 10*3/uL (0.11-0.8); Monocytes % 3.6 % (1.7-12.7); Neutrophils % 95.6 % (38.7-73.9); Platelet Count 40 T/CUMM (130-400); Red Blood Count 3.35 MC/CUMM (3.8-5.5); Red Cell Distribution Width 21.1 % (9.3-17.3); White Blood Count 21.7 T/CUMM (4-12)
[2022-03-10 03:51] LABS: ABG PH 7.143 (7.35-7.45)
[2022-03-10 04:07] LABS: Bilirubin,Total 0.4 MG/DL (0.20-1.00); Osmolality,Calculated 317.5 MOS/KG (273-304); Potassium 4.8 MMOL/L (3.5-5.1); Total Protein 4.2 G/DL (6.4-8.2)
[2022-03-10 04:12] LABS: Calcium 5.7 MG/DL (8.5-10.1)
[2022-03-10 04:15] LABS: Band Neutrophils 2 % (0-10); Hypochromia Slight; Microcytosis Slight; Nucleated Red Blood Cells 2 /100 WBC (0-5); Platelet Estimate Decreased; Total Cells Counted 100
[2022-03-10] MEDS: SODIUM BICARB INJ 100 MEQ in DEXTROSE 5% 1,000 ML IV SCH ×2 (05:10→18:31)
[2022-03-10] MEDS: APIXABAN 5 MG TABLET PO SCH ×2 (08:14→22:17)
[2022-03-10] MEDS: SULFAMETHOX/TRIMETHOPRIM 200-40 MG/5 ML -20 ML UDCUP PO SCH ×2 (08:14→22:17)
[2022-03-10] MEDS: LIOTHYRONINE 25 MCG TABLET PO SCH (08:14)
[2022-03-10] MEDS: guaiFENesin/DM ER 600-30 MG TABLET PO SCH ×2 (08:14→22:17)
[2022-03-10] MEDS: methylPREDNISolone SOD SUC 40 MG/1 ML VIAL IV SCH ×2 (09:30→22:34)
[2022-03-10] MEDS: FLUCONAZOLE INJ 200 MG/100 ML PREMIX IV SCH (09:43)
[2022-03-10] MEDS: FAMOTIDINE 20 MG/2 ML VIAL IV SCH (11:14)
[2022-03-10] MEDS: PHENYLEPHRINE DRIP 40 MG/250 ML PREMIX IV PRN (19:22)
[2022-03-10] MEDS: MENTHOL/ZINC OXIDE OINT 71 GM JAR TOP SCH ×2 (20:51→22:17)
[2022-03-10 20:56] LABS: % CD4 (T Cells) 0 % (32-64); % CD8 (T Cells) 43 % (8-40); 4/8 Ratio 0 (>=0.9)
[2022-03-10] MEDS: ATORVASTATIN 20 MG TABLET PO SCH (22:17)
[2022-03-11] MEDS: INSULIN LISPRO 100 UNIT/ML SUBCUT SCH ×4 (00:22→18:24)
[2022-03-11] MEDS: SODIUM BICARB INJ 100 MEQ in DEXTROSE 5% 1,000 ML IV SCH ×4 (02:30→16:16)
[2022-03-11 04:05] LABS: Basophils % 0.1 % (0.0-0.8); Hematocrit 25.5 VOL% (35.7-47.0); Hemoglobin 7.7 GM/DL (12.0-16.0); Immature Granulocytes % 1.4 %; Immature Granulocytes Absolute 0.28 #; Lymphocytes # 0.1 10*3/uL (1.4-4.0); Lymphocytes % 0.3 % (21.3-54.2); Mean Corpuscular HGB Conc 30.2 GM/DL (32-36); Mean Corpuscular Volume 88.5 FL (87-102); Monocytes # 0.9 10*3/uL (0.11-0.8); Monocytes % 4.4 % (1.7-12.7); NRBC # 0.26 10*3/uL; Neutrophils % 93.8 % (38.7-73.9); Red Blood Count 2.88 MC/CUMM (3.8-5.5); Red Cell Distribution Width 21.2 % (9.3-17.3); White Blood Count 20.4 T/CUMM (4-12)
[2022-03-11] MEDS: METOPROLOL TARTRATE 5 MG/5 ML VIAL IV SCH ×4 (04:05→22:30)
[2022-03-11 04:08] LABS: Platelet Count 36 T/CUMM (130-400)
[2022-03-11 04:18] LABS: Albumin 0.9 G/DL (3.4-5.0); Bilirubin,Total 0.4 MG/DL (0.20-1.00); Osmolality,Calculated 314.7 MOS/KG (273-304); Potassium 5.3 MMOL/L (3.5-5.1); Total Protein 3.8 G/DL (6.4-8.2)
[2022-03-11 04:21] LABS: Calcium 5.4 MG/DL (8.5-10.1)
[2022-03-11 04:23] LABS: Arterial Base Excess iSTAT -4 MMOL/L (-2.5-2.5); Arterial Bicarbonate iSTAT 25.9 MMOL/L (20-26); Arterial O2 Saturation iSTAT 99 % (95-100); Arterial PCO2 iSTAT 71 MM HG (35-48); Arterial PO2 iSTAT 150 MM HG (80-95); Arterial Total CO2 iSTAT 28 MMO/L (23-27); Arterial pH iSTAT 7.169 (7.35-7.45)
[2022-03-11 04:34] LABS: Band Neutrophils 3 % (0-10); Lymphocytes 1 % (20-55); Nucleated Red Blood Cells 1 /100 WBC (0-5); Total Cells Counted 100
[2022-03-11 04:35] LABS: Hypochromia Slight; Microcytosis 1+; Ovalocytes Slight
[2022-03-11 04:36] LABS: Platelet Estimate Decreased
[2022-03-11] MEDS: LEVALBUTEROL 1.25 MG/3 ML NEB RESP TX SCH ×4 (07:40→18:59)
[2022-03-11] MEDS: LIOTHYRONINE 25 MCG TABLET PO SCH (08:15)
[2022-03-11] MEDS: FLUCONAZOLE INJ 200 MG/100 ML PREMIX IV SCH (08:15)
[2022-03-11] MEDS: APIXABAN 5 MG TABLET PO SCH ×2 (08:16→20:51)
[2022-03-11] MEDS: MENTHOL/ZINC OXIDE OINT 71 GM JAR TOP SCH ×2 (08:16→20:51)
[2022-03-11] MEDS: guaiFENesin/DM ER 600-30 MG TABLET PO SCH ×2 (08:16→20:51)
[2022-03-11] MEDS: SULFAMETHOX/TRIMETHOPRIM 200-40 MG/5 ML -20 ML UDCUP PO SCH ×2 (08:16→20:52)
[2022-03-11] MEDS: methylPREDNISolone SOD SUC 40 MG/1 ML VIAL IV SCH ×2 (09:52→22:20)
[2022-03-11] MEDS: FAMOTIDINE 20 MG/2 ML VIAL IV SCH (12:08)
[2022-03-11] MEDS: SODIUM ZIRCONIUM CYCLOSILICATE 10 GM PACK PO SCH ×2 (14:54→20:53)
[2022-03-12] MEDS: INSULIN LISPRO 100 UNIT/ML SUBCUT SCH ×4 (00:13→17:53)
[2022-03-12] MEDS: LEVALBUTEROL 1.25 MG/3 ML NEB RESP TX SCH ×4 (00:45→19:32)
[2022-03-12] MEDS: SODIUM BICARB INJ 100 MEQ in DEXTROSE 5% 1,000 ML IV SCH ×3 (03:16→18:45)
[2022-03-12] MEDS: METOPROLOL TARTRATE 5 MG/5 ML VIAL IV SCH ×4 (04:05→21:57)
[2022-03-12 04:26] LABS: ABG Base Excess -3.2 MMOL/L (-2.5-2.5); ABG HCO3 21.7 MMOL/L (20-26); ABG Oxygen Saturation 94.6 % (95-100); ABG PCO2 65.4 MM HG (35-48); ABG PO2 88.7 MM HG (80-95); ABG TCO2 24.5 MMOL/L (23-27)
[2022-03-12 04:27] LABS: ABG PH 7.198 (7.35-7.45)
[2022-03-12 04:45] LABS: Basophils % 0.1 % (0.0-0.8); Hematocrit 23.5 VOL% (35.7-47.0); Hemoglobin 7.3 GM/DL (12.0-16.0); Immature Granulocytes % 8.2 %; Lymphocytes % 0.2 % (21.3-54.2); Mean Corpuscular HGB Conc 31.1 GM/DL (32-36); Mean Corpuscular Volume 86.7 FL (87-102); Monocytes # 0.6 10*3/uL (0.11-0.8); NRBC # 0.21 10*3/uL; Neutrophils % 87.5 % (38.7-73.9); Red Blood Count 2.71 MC/CUMM (3.8-5.5); Red Cell Distribution Width 20.8 % (9.3-17.3); White Blood Count 15.9 T/CUMM (4-12)
[2022-03-12 04:51] LABS: Albumin 0.8 G/DL (3.4-5.0); Bilirubin,Total 0.4 MG/DL (0.20-1.00); Osmolality,Calculated 321.1 MOS/KG (273-304); Total Protein 3.7 G/DL (6.4-8.2)
[2022-03-12 04:52] LABS: Platelet Count 32 T/CUMM (130-400)
[2022-03-12 04:54] LABS: Calcium 5.3 MG/DL (8.5-10.1)
[2022-03-12 05:04] LABS: Band Neutrophils 2 % (0-10); Lymphocytes 1 % (20-55); Nucleated Red Blood Cells 2 /100 WBC (0-5); Total Cells Counted 100
[2022-03-12 05:05] LABS: Hypochromia 1+; Microcytosis 1+; Ovalocytes Slight; Platelet Estimate Decreased
[2022-03-12] MEDS ORDERED: SODIUM CHLORIDE 0.9% 1,000 ML IV PRN (06:02)
[2022-03-12] MEDS: SULFAMETHOX/TRIMETHOPRIM 200-40 MG/5 ML -20 ML UDCUP PO SCH ×2 (08:50→21:58)
[2022-03-12] MEDS: MENTHOL/ZINC OXIDE OINT 71 GM JAR TOP SCH ×2 (08:50→21:59)
[2022-03-12] MEDS: LIOTHYRONINE 25 MCG TABLET PO SCH (08:54)
[2022-03-12] MEDS: SODIUM ZIRCONIUM CYCLOSILICATE 10 GM PACK PO SCH ×3 (08:54→21:59)
[2022-03-12] MEDS: FLUCONAZOLE INJ 200 MG/100 ML PREMIX IV SCH (08:57)
[2022-03-12] MEDS: guaiFENesin/DM ER 600-30 MG TABLET PO SCH ×2 (08:58→21:59)
[2022-03-12] MEDS: APIXABAN 5 MG TABLET PO SCH (09:00)
[2022-03-12] MEDS: methylPREDNISolone SOD SUC 40 MG/1 ML VIAL IV SCH ×2 (09:59→21:50)
[2022-03-12] MEDS: FAMOTIDINE 20 MG/2 ML VIAL IV SCH (11:18)
[2022-03-13] MEDS: LEVALBUTEROL 1.25 MG/3 ML NEB RESP TX SCH ×4 (00:03→18:50)
[2022-03-13] MEDS: INSULIN LISPRO 100 UNIT/ML SUBCUT SCH ×4 (00:12→18:16)
[2022-03-13] MEDS: MORPHINE 2 MG/1 ML SYRINGE IV PRN (01:11)
[2022-03-13 04:27] LABS: ABG Base Excess 0.1 MMOL/L (-2.5-2.5); ABG HCO3 24.5 MMOL/L (20-26); ABG Oxygen Saturation 95.6 % (95-100); ABG PCO2 68.8 MM HG (35-48); ABG PH 7.224 (7.35-7.45); ABG PO2 90.9 MM HG (80-95); ABG TCO2 27.6 MMOL/L (23-27)
[2022-03-13 04:39] LABS: Basophils % 0.1 % (0.0-0.8); Hematocrit 20.1 VOL% (35.7-47.0); Immature Granulocytes % 11.5 %; Immature Granulocytes Absolute 1.95 #; Lymphocytes # 0.1 10*3/uL (1.4-4.0); Lymphocytes % 0.6 % (21.3-54.2); Mean Corpuscular HGB Conc 31.3 GM/DL (32-36); Mean Corpuscular Volume 86.3 FL (87-102); Monocytes # 0.8 10*3/uL (0.11-0.8); Monocytes % 4.6 % (1.7-12.7); NRBC # 0.38 10*3/uL; Neutrophils % 83.2 % (38.7-73.9); Platelet Count 42 T/CUMM (130-400); Red Blood Count 2.33 MC/CUMM (3.8-5.5); Red Cell Distribution Width 20.5 % (9.3-17.3)
[2022-03-13 04:44] LABS: Hemoglobin 6.3 GM/DL (12.0-16.0)
[2022-03-13] MEDS: METOPROLOL TARTRATE 5 MG/5 ML VIAL IV SCH ×4 (04:45→22:26)
[2022-03-13 04:51] LABS: Albumin 0.9 G/DL (3.4-5.0); Bilirubin,Total 0.5 MG/DL (0.20-1.00); Osmolality,Calculated 310.5 MOS/KG (273-304); Potassium 5.1 MMOL/L (3.5-5.1); Total Protein 3.6 G/DL (6.4-8.2)
[2022-03-13 04:54] LABS: Calcium 5.3 MG/DL (8.5-10.1)
[2022-03-13 05:08] LABS: Band Neutrophils 4 % (0-10); Hypochromia Slight; Lymphocytes 2 % (20-55); Microcytosis 1+; Myelocytes 1 %; Nucleated Red Blood Cells 2 /100 WBC (0-5); Ovalocytes Few; Target Cells Slight; Total Cells Counted 100
[2022-03-13 05:09] LABS: Platelet Estimate Decreased
[2022-03-13] MEDS ORDERED: SODIUM CHLORIDE 0.9% 1,000 ML IV PRN (05:50)
[2022-03-13] MEDS: SODIUM BICARB INJ 100 MEQ in DEXTROSE 5% 1,000 ML IV SCH ×3 (05:54→16:59)
[2022-03-13] MEDS: SODIUM ZIRCONIUM CYCLOSILICATE 10 GM PACK PO SCH (08:48)
[2022-03-13] MEDS: LIOTHYRONINE 25 MCG TABLET PO SCH (08:48)
[2022-03-13] MEDS: FLUCONAZOLE INJ 200 MG/100 ML PREMIX IV SCH (08:49)
[2022-03-13] MEDS: guaiFENesin/DM ER 600-30 MG TABLET PO SCH ×2 (08:49→21:33)
[2022-03-13] MEDS: MENTHOL/ZINC OXIDE OINT 71 GM JAR TOP SCH ×2 (08:50→21:33)
[2022-03-13] MEDS: SULFAMETHOX/TRIMETHOPRIM 200-40 MG/5 ML -20 ML UDCUP PO SCH ×2 (09:52→21:31)
[2022-03-13] MEDS: methylPREDNISolone SOD SUC 40 MG/1 ML VIAL IV SCH ×2 (10:06→21:34)
[2022-03-13] MEDS: FAMOTIDINE 20 MG/2 ML VIAL IV SCH (12:39)
[2022-03-13 20:25] LABS: Hematocrit 25.7 VOL% (35.7-47.0); Hemoglobin 8.3 GM/DL (12.0-16.0)
[2022-03-13] MEDS: PHENYLEPHRINE DRIP 40 MG/250 ML PREMIX IV PRN (21:46)
[2022-03-14] MEDS: INSULIN LISPRO 100 UNIT/ML SUBCUT SCH ×4 (00:10→17:36)
[2022-03-14] MEDS: LEVALBUTEROL 1.25 MG/3 ML NEB RESP TX SCH ×4 (00:41→21:25)
[2022-03-14] MEDS: METOPROLOL TARTRATE 5 MG/5 ML VIAL IV SCH ×4 (03:56→21:01)
[2022-03-14] MEDS: SODIUM BICARB INJ 100 MEQ in DEXTROSE 5% 1,000 ML IV SCH ×2 (04:06→08:35)
[2022-03-14 04:33] LABS: Basophils # 0.1 10*3/uL (0.0-0.2); Basophils % 0.3 % (0.0-0.8); Eosinophils % 0.1 % (0.00-10.9); Hematocrit 25.6 VOL% (35.7-47.0); Hemoglobin 8.2 GM/DL (12.0-16.0); Immature Granulocytes % 2.8 %; Immature Granulocytes Absolute 0.67 #; Lymphocytes # 0.1 10*3/uL (1.4-4.0); Lymphocytes % 0.5 % (21.3-54.2); Mean Corpuscular Volume 85.9 FL (87-102); Monocytes # 0.9 10*3/uL (0.11-0.8); Monocytes % 3.7 % (1.7-12.7); NRBC # 0.87 10*3/uL; Neutrophils % 92.6 % (38.7-73.9); Platelet Count 44 T/CUMM (130-400); Red Blood Count 2.98 MC/CUMM (3.8-5.5); Red Cell Distribution Width 18.1 % (9.3-17.3); White Blood Count 24.1 T/CUMM (4-12)
[2022-03-14 05:10] LABS: Lymphocytes 4 % (20-55); Nucleated Red Blood Cells 6 /100 WBC (0-5); Platelet Estimate Decreased; Total Cells Counted 100
[2022-03-14 06:02] LABS: Alanine Aminotransferase 159 U/L (13-56); Alanine Aminotransferase 160 U/L (13-56); Albumin 0.7 G/DL (3.4-5.0); Alkaline Phosphatase 414 U/L (45-117); Alkaline Phosphatase 425 U/L (45-117); Aspartate Amino Transferase 238 U/L (0-37); Aspartate Amino Transferase 244 U/L (0-37); Bilirubin,Indirect 0.4 MG/DL (0.0-1.0); Blood Urea Nitrogen 135 MG/DL (7-18); Blood Urea Nitrogen 138 MG/DL (7-18); Carbon Dioxide 28 MMOL/L (21-32); Chloride 89 MMOL/L (98-107); Glucose 185 MG/DL (74-106); Osmolality,Calculated 309.8 MOS/KG (273-304); Osmolality,Calculated 312.5 MOS/KG (273-304); Sodium 130 MMOL/L (136-145); Sodium 132 MMOL/L (136-145); Total Protein 3.4 G/DL (6.4-8.2)
[2022-03-14 06:04] LABS: Calcium < 5.0 MG/DL (8.5-10.1); Potassium 6.1 MMOL/L (3.5-5.1)
[2022-03-14] MEDS ORDERED: CALCIUM GLUCONATE RIDER 1,000 MG/50 ML PREMIX IV ONE (06:30)
[2022-03-14] MEDS ORDERED: INSULIN REGULAR 10 UNIT, CALCIUM GLUCONATE 1,000 MG in DEXTROSE 10% 250 ML IV ONE (06:30)
[2022-03-14] MEDS ORDERED: SODIUM POLYSTYRENE SULFATE 15 GM/60 ML BOTTLE PO ONE (06:30)
[2022-03-14] MEDS: MORPHINE 2 MG/1 ML SYRINGE IV PRN ×2 (08:09→16:15)
[2022-03-14] MEDS: LIOTHYRONINE 25 MCG TABLET PO SCH (08:43)
[2022-03-14] MEDS: MENTHOL/ZINC OXIDE OINT 71 GM JAR TOP SCH ×2 (08:43→20:57)
[2022-03-14] MEDS: SULFAMETHOX/TRIMETHOPRIM 200-40 MG/5 ML -20 ML UDCUP PO SCH ×2 (08:43→20:58)
[2022-03-14] MEDS: FLUCONAZOLE INJ 200 MG/100 ML PREMIX IV SCH (08:44)
[2022-03-14] MEDS: guaiFENesin/DM ER 600-30 MG TABLET PO SCH ×2 (08:44→20:57)
[2022-03-14] MEDS: SODIUM BICARB INJ 100 MEQ in STERILE WATER INJ 1,000 ML IV SCH ×2 (09:13→20:13)
[2022-03-14] MEDS: methylPREDNISolone SOD SUC 40 MG/1 ML VIAL IV SCH ×2 (10:00→22:12)
[2022-03-14] MEDS: FAMOTIDINE 20 MG/2 ML VIAL IV SCH (11:45)
[2022-03-14] MEDS: PHENYLEPHRINE DRIP 40 MG/250 ML PREMIX IV PRN (13:55)
[2022-03-14] MEDS ORDERED: MIDAZOLAM 2 MG/2 ML VIAL IV ONE (16:16)
[2022-03-14] MEDS ORDERED: MIDAZOLAM 10 MG/2 ML VIAL ONE (16:17)
[2022-03-14] MEDS: SODIUM ZIRCONIUM CYCLOSILICATE 10 GM PACK PER TUBE SCH (20:57)
[2022-03-15] MEDS: INSULIN LISPRO 100 UNIT/ML SUBCUT SCH ×4 (00:08→17:54)
[2022-03-15] MEDS: LEVALBUTEROL 1.25 MG/3 ML NEB RESP TX SCH ×4 (00:30→18:52)
[2022-03-15] MEDS: PHENYLEPHRINE DRIP 40 MG/250 ML PREMIX IV PRN ×2 (02:02→13:55)
[2022-03-15] MEDS: METOPROLOL TARTRATE 5 MG/5 ML VIAL IV SCH ×4 (03:43→21:29)
[2022-03-15 04:00] LABS: Basophils # 0.1 10*3/uL (0.0-0.2); Basophils % 0.3 % (0.0-0.8); Eosinophils % 0.1 % (0.00-10.9); Hematocrit 23.3 VOL% (35.7-47.0); Hemoglobin 7.5 GM/DL (12.0-16.0); Immature Granulocytes % 5.9 %; Mean Corpuscular HGB Conc 32.2 GM/DL (32-36); Monocytes # 1.1 10*3/uL (0.11-0.8); Monocytes % 4.4 % (1.7-12.7); NRBC # 1.31 10*3/uL; Neutrophils % 89.3 % (38.7-73.9); Platelet Count 51 T/CUMM (130-400); Red Blood Count 2.71 MC/CUMM (3.8-5.5); Red Cell Distribution Width 18.9 % (9.3-17.3); White Blood Count 25.2 T/CUMM (4-12)
[2022-03-15 04:30] LABS: Band Neutrophils 1 % (0-10); Lymphocytes 1 % (20-55); Nucleated Red Blood Cells 8 /100 WBC (0-5); Total Cells Counted 100
[2022-03-15 04:31] LABS: Burr Cells Few; Platelet Estimate Decreased; Schistocytes Slight
[2022-03-15 04:32] LABS: Albumin 0.6 G/DL (3.4-5.0); Bilirubin,Total 0.7 MG/DL (0.20-1.00); Osmolality,Calculated 303.9 MOS/KG (273-304); Polychromasia Slight; Total Protein 3.3 G/DL (6.4-8.2)
[2022-03-15 04:36] LABS: Calcium 5.1 MG/DL (8.5-10.1)
[2022-03-15 04:37] LABS: Potassium 6.3 MMOL/L (3.5-5.1)
[2022-03-15] MEDS ORDERED: SODIUM POLYSTYRENE SULFATE 15 GM/60 ML BOTTLE PO ONE (04:56)
[2022-03-15 05:55] LABS: Osmolality,Calculated 304.9 MOS/KG (273-304)
[2022-03-15 05:56] LABS: Calcium 5.5 MG/DL (8.5-10.1)
[2022-03-15 05:57] LABS: Potassium 6.3 MMOL/L (3.5-5.1)
[2022-03-15] MEDS: SODIUM BICARB INJ 100 MEQ in STERILE WATER INJ 1,000 ML IV SCH ×2 (07:13→17:55)
[2022-03-15] MEDS: SODIUM ZIRCONIUM CYCLOSILICATE 10 GM PACK PER TUBE SCH ×3 (08:25→21:28)
[2022-03-15] MEDS: LIOTHYRONINE 25 MCG TABLET PO SCH (08:25)
[2022-03-15] MEDS: SULFAMETHOX/TRIMETHOPRIM 200-40 MG/5 ML -20 ML UDCUP PO SCH ×2 (08:25→21:30)
[2022-03-15] MEDS: guaiFENesin/DM ER 600-30 MG TABLET PO SCH ×2 (08:25→21:28)
[2022-03-15] MEDS: MENTHOL/ZINC OXIDE OINT 71 GM JAR TOP SCH ×2 (08:25→21:29)
[2022-03-15] MEDS: methylPREDNISolone SOD SUC 40 MG/1 ML VIAL IV SCH ×2 (10:34→21:34)
[2022-03-15] MEDS: FAMOTIDINE 20 MG/2 ML VIAL IV SCH (11:54)
[2022-03-15] MEDS ORDERED: MIDAZOLAM 10 MG/2 ML VIAL IV ONE (14:43)
[2022-03-15] MEDS ORDERED: MIDAZOLAM 10 MG/2 ML VIAL ONE (14:44)
[2022-03-15] MEDS ORDERED: MIDAZOLAM 2 MG/2 ML VIAL IV PRN (18:04)
[2022-03-16] MEDS: LEVALBUTEROL 1.25 MG/3 ML NEB RESP TX SCH ×3 (00:11→14:26)
[2022-03-16] MEDS: INSULIN LISPRO 100 UNIT/ML SUBCUT SCH ×3 (00:35→12:00)
[2022-03-16] MEDS: METOPROLOL TARTRATE 5 MG/5 ML VIAL IV SCH ×2 (04:20→10:00)
[2022-03-16 04:36] LABS: Basophils % 0.2 % (0.0-0.8); Hematocrit 20.1 VOL% (35.7-47.0); Hemoglobin 6.6 GM/DL (12.0-16.0); Immature Granulocytes % 7.9 %; Immature Granulocytes Absolute 1.46 #; Mean Corpuscular HGB Conc 32.8 GM/DL (32-36); Mean Corpuscular Volume 85.2 FL (87-102); Monocytes % 5.3 % (1.7-12.7); NRBC # 1.16 10*3/uL; Neutrophils % 86.6 % (38.7-73.9); Platelet Count 45 T/CUMM (130-400); Red Blood Count 2.36 MC/CUMM (3.8-5.5); Red Cell Distribution Width 18.8 % (9.3-17.3); White Blood Count 18.5 T/CUMM (4-12)
[2022-03-16 05:04] LABS: Band Neutrophils 1 % (0-10); Blood Urea Nitrogen 147 MG/DL (7-18); Carbon Dioxide 32 MMOL/L (21-32); Chloride 83 MMOL/L (98-107); Glucose 92 MG/DL (74-106); Lymphocytes 1 % (20-55); Nucleated Red Blood Cells 9 /100 WBC (0-5); Osmolality,Calculated 300.4 MOS/KG (273-304); Sodium 126 MMOL/L (136-145); Total Cells Counted 100
[2022-03-16 05:05] LABS: Hypochromia Slight; Microcytosis 1+; Ovalocytes Slight
[2022-03-16 05:06] LABS: Platelet Estimate Decreased; Target Cells Slight
[2022-03-16 05:08] LABS: Calcium < 5.0 MG/DL (8.5-10.1)
[2022-03-16 05:09] LABS: Potassium 6.6 MMOL/L (3.5-5.1)
[2022-03-16] MEDS: SODIUM BICARB INJ 100 MEQ in STERILE WATER INJ 1,000 ML IV SCH (05:25)
[2022-03-16] MEDS: MENTHOL/ZINC OXIDE OINT 71 GM JAR TOP SCH (08:15)
[2022-03-16] MEDS: LIOTHYRONINE 25 MCG TABLET PO SCH (09:00)
[2022-03-16] MEDS: guaiFENesin/DM ER 600-30 MG TABLET PO SCH (09:00)
[2022-03-16] MEDS: SODIUM ZIRCONIUM CYCLOSILICATE 10 GM PACK PER TUBE SCH (09:00)
[2022-03-16] MEDS: FAMOTIDINE 20 MG/2 ML VIAL IV SCH (10:55)
[2022-03-16] MEDS: methylPREDNISolone SOD SUC 40 MG/1 ML VIAL IV SCH (10:55)
[2022-03-16] MEDS: MORPHINE 2 MG/1 ML SYRINGE IV PRN (11:00)
[2022-03-16 12:40] VITALS: BP 0/0
== END 2022-03-16 11:20 | disposition expired | DRG 969 ==
LOC: N.ED 15:17 → N.EDINP 18:33 → SUATTDRO 18:33 → N.5E 20:51 → N.TELEN 02-15 16:52 → N.ICU 02-20 12:07 → N.3E 02-26 17:11 → N.CVR 03-05 09:38 → N.ICU 03-05 18:20
PROVIDERS: ADMIT Internal Medicine; ATTEND Internal Medicine